=== PATIENT | female | born 1980 | race Caucasian/White ===

== ENCOUNTER → 2016-10-17 | Outpatient (REF) | payer OTHER ==
[~2016-10-17] MED LIST: ACET50CA PO; CALC600T21 PO; CIPR-250 PO; CIPR500T89 PO; CYMB60CA3 PO; DIAM500C PO; GLUCTAB PO; METF500T PO; MULTCAP PO; PROP60TA14 PO; RIZA10TA2 PO; TYLE325T5 PO; VITA100066 PO; VITA500T53 PO; ZOFR20TA PO
[2016-10-17 13:10] LABS: FOLATE 20.8 NG/ML
== END ==
LOC: M LAB REF 12:13
PROVIDERS: ATTEND Nurse Practitioner Adult Health
DX: Z98.84 Bariatric surgery status (principal); G43.909 Migraine, unspecified, not intractable, without status migrainosus; G03.0 Nonpyogenic meningitis

== ENCOUNTER 2017-01-02 19:58 | Observation (INO) | payer OTHER ==
[~2017-01-02] VITALS: Ht 162.6 cm; Wt 106.2 kg
[2017-01-02] MEDS ORDERED: NS 1,000 ML IV ONE (23:15)
[2017-01-02] MEDS ORDERED: diphenhydrAMINE INJ 50MG/ML VIAL (J1200) IV ONE (23:15)
[2017-01-02] MEDS ORDERED: KETOROLAC 30 MG/ML VIAL (J1885) IV ONE (23:15)
[2017-01-02] MEDS ORDERED: METOCLOPRAMIDE INJ 10MG/2ML VIAL (J2765) IV ONE (23:15)
--- NOTE | 2017-01-02 23:50 | REPUSA ---
CT of the head Clinical history: Headache. Comparison 05/15/2016. Technique: Multiple axial CT images were obtained through the head without administration of contrast . Findings: The ventricles and sulci are symmetric bilaterally. There is no evidence of acute hemorrhag e or infarct. There is no midline shift, mass effect, or extra-axial fluid collection. The osseous st ructures are unremarkable. The visualized paranasal sinuses and mastoid air cells are clear. Impression: Negative study.
[2017-01-03 00:14] LABS: BASO % 0.7 % (0.0-1.0); EOS # 0.2 K/mm3 (0.0-0.50); EOS % 2.8 % (0.0-3.0); LARGE UNSTAINED CELL # 0.1 K/mm3 (0.0-0.4); LYMPH # 3.1 K/mm3 (1.5-4.5); LYMPH % 45.3 % (24.0-44.0); MEAN CORPUSCULAR HEMOGLOBIN 23.5 pg (27.0-33.0); MEAN CORPUSCULAR HGB CONC 31.8 g/dl (32.0-36.5); MEAN CORPUSCULAR VOLUME 73.9 fl (80.0-96.0); MONO # 0.4 K/mm3 (0.0-0.8); MONO % 5.7 % (0.0-5.0); NEUTROPHILS # 2.9 K/mm3 (1.8-7.7); NEUTROPHILS % 43.6 % (36.0-66.0); PLATELET COUNT, AUTOMATED 305 k/mm3 (150-450); RED CELL DISTRIBUTION WIDTH 16.2 % (11.5-14.5); WHITE BLOOD COUNT 6.6 K/mm3 (4.0-10.0)
[2017-01-03 00:18] LABS: INR 1.09
[2017-01-03 00:19] LABS: ANION GAP 7 MEQ/L (8-16); BLOOD UREA NITROGEN 8 MG/DL (7-18); CALCIUM LEVEL 8.5 MG/DL (8.5-10.1); CARBON DIOXIDE LEVEL 30 MEQ/L (21-32); CHLORIDE LEVEL 107 MEQ/L (98-107); CREATININE FOR GFR 0.66 MG/DL (0.55-1.02); GLOMERULAR FILTRATION RATE > 60.0 (>60); GLUCOSE, FASTING 92 MG/DL (70-105); POTASSIUM SERUM 3.3 MEQ/L (3.5-5.1); SODIUM LEVEL 144 MEQ/L (136-145)
[2017-01-03] MEDS ORDERED: MORPHINE 4 MG/ML 1ML SYRINGE IV PRN (01:30)
[2017-01-03] MEDS ORDERED: VITMTA PO (02:21)
[2017-01-03] MEDS ORDERED: ACET50TAOT PO (02:21)
[2017-01-03] MEDS ORDERED: ACETAMINOPHEN 500 MG TAB PO PRN (03:30)
[2017-01-03] MEDS ORDERED: METOCLOPRAMIDE INJ 10MG/2ML VIAL (J2765) IV PRN (03:30)
[2017-01-03 04:12] VITALS: BP 128/61
[2017-01-03] MEDS ORDERED: POTASSIUM CHLORIDE 10 MEQ SR TABLET PO ONE (04:15)
[2017-01-03 06:00] VITALS: BP 139/64
[2017-01-03] MEDS: VITAMIN D 1,000 INTERNATIONAL UNITS TABLET PO SCH (09:34)
[2017-01-03] MEDS: DULoxetine 30 MG CAP (CYMBALTA) PO SCH (09:34)
[2017-01-03] MEDS: CYANOCOBALAMIN 500 MCG TAB PO SCH (09:34)
[2017-01-03] MEDS: MORPHINE 2 MG/ML 1ML SYRINGE IV PRN ×2 (09:35→16:31)
--- NOTE | 2017-01-03 09:42 | HPE ---
DATE OF ADMISSION: 01/03/2017 PRIMARY CARE PROVIDER: Orin Brown NP CHIEF COMPLAINT: Severe left sided headache along with left periorbital and retroorbital pain for one day, along with nausea. PAST MEDICAL HISTORY: Pseudotumor cerebri. Morbid obesity. History of ventriculoperitoneal shunt insertion and removal due to infection in 2014. Migraines. HISTORY OF PRESENT ILLNESS: This is a 36-year-old morbidly obese female who was in her usual state of health yesterday when she suddenly developed a headache involving the left side of the head along with left jessica and retroorbital area associated with nausea, but there was no vomiting. She also complained of excessive sensitivity to light and photophobia. She initially thought it was a migraines, she took some medications at home; however, it did not help so she came to the emergency room. In the emergency department she had a cocktail of medications of migraines including Benadryl, Reglan, Toradol and morphine, however she continued to complain of severe pain. The patient had a CT scan of the head done which was negative for any acute abnormalities. In view of her history of pseudotumor cerebri, neurosurgeon transition rn was contacted by the ED physician, and as per him, the patient would need a lumbar puncture later in the morning to assess opening pressure and he suggested that it should be done fluoroscopic guidance as in the past there was difficulty in doing lumbar puncture because of her body habitus. The patient's laboratory work in the emergency room was within normal limits except for a potassium of 3.3. The patient is being admitted to the hospitalist service for headache related to either migraine or pseudotumor cerebri. On my interview, the patient complained of left sided headache with blurriness of vision on the left, photophobia of the left eye and also retroorbital pain on the left. She complained of nausea. Denied any fever and chills. Denied any vomiting or any abdominal pain, diarrhea or constipation. Denied any neck pain. Denied any chest pain, shortness of breath or cough. PAST SURGICAL HISTORY: Evacuation of hematoma in the anterior abdominal wall. Several explorations in the abdomen for displaced lumboperitoneal shunt. Bilateral salpingectomies, fulguration of endometriosis and lysis of adhesions in the abdomen. Total hysterectomy. Cystoscopy. Lumboperitoneal shunt insertion and removal in 2014. ALLERGIES: 1. CEFTRIAXONE. 2. CEPHALOSPORINS. 3. VENLAFAXINE. HOME MEDICATIONS: - Cymbalta 60 mg by mouth daily - multivitamin - Tylenol 1000 mg every 6 hours as needed - cyanocobalamin 500 mcg by mouth daily - vitamin D 1000 units by mouth daily SOCIAL HISTORY: Patient does not smoke, use alcohol, or use or abuse recreational drugs. FAMILY HISTORY: Nothing significant. REVIEW OF SYSTEMS: Negative except as mentioned in history of present illness. PHYSICAL EXAMINATION: VITAL SIGNS: Temperature 97, pulse 69, respiratory rate 18, blood pressure 147/85, pulse oximetry 98% in room air. GENERAL: Patient awake, alert and oriented times three lying down in bed in no acute distress. HEENT: Normocephalic, atraumatic. Moist mucous membranes. Anicteric eyes. CHEST: Clear to auscultation. CARDIOVASCULAR: S1 and S2 regular. ABDOMEN: Soft, nontender. Bowel sounds present. Morbidly obese. EXTREMITIES: No edema. LABORATORY DATA: WBC 6.6, hemoglobin 12, platelets 305. Sodium 144, potassium 3.3, chloride 107, bicarb 30, BUN 8, creatinine 0.6, glucose 92, calcium 8.5. Coagulation studies are normal. RADIOLOGY: CT scan of the head reviewed. ASSESSMENT/PLAN: This is a 36-year-old female admitted for headache, rule out pseudotumor cerebri versus migraine. PLAN: Headache. The patient has a history of pseudotumor cerebri. Patient will need assessment of spinal pressure after lumbar puncture, which as per neurosurgeon can be performed in the morning and recommended this be done under fluoroscopic guidance because of her body habitus which has caused problems with lumbar punctures in the past. Rule out migraine. The patient does have a history of migraines so the headache could also be due to migraine. Will continue the patient on pain control for migraine. Morbid obesity complicating are. Deep vein thrombosis (DVT) prophylaxis has been ordered. Hypokalemia. Has been replaced.
[2017-01-03 14:00] VITALS: BP_SYST 160; BP_SYST 167; BP_DIAS 79; BP_DIAS 85
[2017-01-03] MEDS ORDERED: CONRAY-43 43% 50ML VIAL (Q9960) As Ordered ONE (14:00)
[2017-01-03 15:24] LABS: GLUCOSE CSF 51 MG/DL (40-75)
[2017-01-03 15:31] LABS: APPEARANCE, CSF TURBID (CLEAR); COLOR, CSF RED (COLORLESS); CSF TUBE# CELL CNT TUBE 1
[2017-01-03 15:47] LABS: APPEARANCE, CSF TURBID (CLEAR); COLOR, CSF RED (COLORLESS); CSF TUBE# CELL CNT TUBE 4
[2017-01-03 15:48] LABS: WBC COUNTED CSF 5 /uL (0-10)
[2017-01-03 15:49] LABS: DILUTION WBC CSF 10 (0-10)
[2017-01-03 15:51] LABS: DILUTION RBC CSF 10 (0-10); RBC CALC CSF 21544 /mm3 (0-0); RBC COUNTED CSF 1939 /mm3 (0-0)
--- NOTE | 2017-01-03 15:59 | IPNPDOC ---
Subjective Date Seen The patient was seen on 01/03/17. Subjective Chief Complaint/HPI The patient is a 36-year-old female admitted with a reason for visit of Headache. Events since last encounter Left sided headache, not improved, not worse, photophobia, no parasthesia, no nausea Constitutional: Denies: Chills, Fever Pulmonary: Denies: Dyspnea, Cough Cardiovascular: Denies: Chest Pain, Palpitations Gastrointestinal: Denies: Nausea, Vomiting Musculoskeletal: Denies: Neck Pain Objective Physical Examination General Exam: Positive: Alert, Cooperative, Mild Distress Eye Exam: Negative: Sclera icteric ENT Exam: Positive: Mucous membr. moist/pink Chest Exam: Positive: Clear to auscultation, Normal air movement Heart Exam: Positive: Rate Normal, Regular Rhythm Abdomen Exam: Positive: Normal bowel sounds, Soft, Negative: Tenderness Assessment /Plan Problems (1) Headache Status: Acute Problem Specific Plan: Consult Specialist Problem Text: Patient with historyof migraine and pseudotumor Interventional radiology today for lumbar puncture Neurosurgery to see as discussed last night from ED (2) Morbid obesity with BMI of 40.0-44.9, adult Status: Chronic Problem Specific Plan: Monitor Clinically Plan/VTE VTE Prophylaxis Ordered?: Yes VS, I&O, 24H, Fishbone Vital Signs/I&O Vital Signs Date Time Temp Pulse Resp B/P (MAP) Pulse Ox O2 Delivery O2 Flow Rate FiO2 01/03/17 09:47 20 01/03/17 06:00 98.1 67 139/64 (89) 94 Room Air I&O- Last 24 Hours up to 6 AM 01/03/17 06:00 Intake Total 1120 ml Balance 1120 ml Laboratory Data 24H LABS Laboratory Tests 2 01/02/17 23:46: White Blood Count 6.6, Red Blood Count 5.09, Hemoglobin 12.0, Hematocrit 37.6, Mean Corpuscular Volume 73.9L, Mean Corpuscular Hemoglobin 23.5L, Mean Corpuscular Hemoglobin Concent 31.8L, Red Cell Distribution Width 16.2H, Platelet Count 305, Neutrophils (%) (Auto) 43.6, Lymphocytes (%) (Auto) 45.3H, Monocytes (%) (Auto) 5.7H, Eosinophils (%) (Auto) 2.8, Basophils (%) (Auto) 0.7 , Neutrophils # (Auto) 2.9, Lymphocytes # (Auto) 3.1, Monocytes # (Auto) 0.4, Eosinophils # (Auto) 0.2, Basophils # (Auto) 0.0, Large Unclassified Cells % 2.0 , Large Unclassified Cells # 0.1, Prothrombin Time 14.2, Prothromb Time International Ratio 1.09, Activated Partial Thromboplast Time 28.5, Anion Gap 7L , Glomerular Filtration Rate > 60.0, Blood Urea Nitrogen 8, Creatinine 0.66, Sodium Level 144, Potassium Level 3.3L, Chloride Level 107, Carbon Dioxide Level 30, Calcium Level 8.5 01/03/17 14:31: CSF Color REDH, CSF Appearance TURBIDH, CSF WBC 56H, CSF RBC [id number], CSF Glucose (Tube 1) TUBE 2, CSF Total Protein (Tube 1) TUBE 2, CSF Cell Count Tube # TUBE 4, CSF Glucose 51, CSF Total Protein 122.4H CBC/BMP Laboratory Tests 01/02/17 23:46 Red Blood Count 5.09, Mean Corpuscular Volume 73.9 L, Mean Corpuscular Hemoglobin 23.5 L, Mean Corpuscular Hemoglobin Concent 31.8 L, Red Cell Distribution Width 16.2 H, Neutrophils (%) (Auto) 43.6, Lymphocytes (%) (Auto) 45.3 H, Monocytes (%) (Auto) 5.7 H, Eosinophils (%) (Auto) 2.8, Basophils (%) ( Auto) 0.7, Neutrophils # (Auto) 2.9, Lymphocytes # (Auto) 3.1, Monocytes # (Auto ) 0.4, Eosinophils # (Auto) 0.2, Basophils # (Auto) 0.0, Calcium Level 8.5 Microbiology Microbiology 01/03/17 Gram Stain - Final, Resulted 01/03/17 CSF Culture, Resulted Pending ASHLEY CASEY MD January 03, 2017 15:59
--- NOTE | 2017-01-03 16:37 | CR.PDOC ---
General Reason for Consultation/CC The patient is a 36-year-old female admitted with a reason for visit of Headache. History of Present Illness Neurosurgery Consult HISTORY OF PRESENT ILLNESS: Ms Cedillo is a pleasant 36 yo female admitted for left-sided headache with visual disturbances with floaters for which she has presented to the ED. Dr Currie was asked for a consult. She is accompanied by 2 family members today. She states her headache this time was unusual for her pseudotumor cerebri symptoms. Typically these headaches are on the right side. She notes after placement of the shunt she had no headaches. The shunt became problematic when infection arose and had to be removed on 12/30/2014. States she has been having issues with her memory. She states she lost her peripheral vision prior to her shunt surgery in 2014. Her last formal eye exam was 1 yr ago. ALLERGIES: Please see below. HOME MEDICATIONS: Please see below. PAST MEDICAL HISTORY: 1. Pseudotumor Cerebri; confirmed by neuroophthalmologist 2. Migraines PAST SURGICAL HISTORY: 1. Lumboperitoneal shunt placement and removal 12/2014 (d/t infection) PHYSICAL EXAMINATION: VITAL SIGNS: Please see below. GENERAL APPEARANCE: morbid obesity/ Alert and orientated x3. CLIFF. Speech is appropriate and she is participating in conversation well. NEURO: Able to move all limbs. Exam is limited d/t pt is post procedure of LP requiring her to lie flat in bed. LABORATORY DATA: Please see below. DIAGNOSTIC DATA: CT head; 01/02/17. No hydrocephalus of symptoms of brain edema. Arachnoid space is open. Small arachnoid cyst on the left side of brain. IMPRESSION: 1. Pseudotumor cerebri 2. Transformed complicated migraine PLAN/RECOMMENDATIONS: -Recommend neurology consult for assessment of migraine. -Possible left-sided TRANSCRIPTION MANAGER shunt insertion. -Request MRI venography to rule out sinus occlusion. Thank you for the consultation. Dr Kush Bahena, [facility] Vital Signs/I&O Vital Signs Date Time Temp Pulse Resp B/P (MAP) Pulse Ox O2 Delivery O2 Flow Rate FiO2 01/03/17 09:47 20 01/03/17 06:00 98.1 67 139/64 (89) 94 Room Air I&O- Last 24 Hours up to 6 AM 01/03/17 06:00 Intake Total 1120 ml Balance 1120 ml Laboratory Data 24H Labs Laboratory Tests 2 01/02/17 23:46: White Blood Count 6.6, Red Blood Count 5.09, Hemoglobin 12.0, Hematocrit 37.6, Mean Corpuscular Volume 73.9L, Mean Corpuscular Hemoglobin 23.5L, Mean Corpuscular Hemoglobin Concent 31.8L, Red Cell Distribution Width 16.2H, Platelet Count 305, Neutrophils (%) (Auto) 43.6, Lymphocytes (%) (Auto) 45.3H, Monocytes (%) (Auto) 5.7H, Eosinophils (%) (Auto) 2.8, Basophils (%) (Auto) 0.7 , Neutrophils # (Auto) 2.9, Lymphocytes # (Auto) 3.1, Monocytes # (Auto) 0.4, Eosinophils # (Auto) 0.2, Basophils # (Auto) 0.0, Large Unclassified Cells % 2.0 , Large Unclassified Cells # 0.1, Prothrombin Time 14.2, Prothromb Time International Ratio 1.09, Activated Partial Thromboplast Time 28.5, Anion Gap 7L , Glomerular Filtration Rate > 60.0, Blood Urea Nitrogen 8, Creatinine 0.66, Sodium Level 144, Potassium Level 3.3L, Chloride Level 107, Carbon Dioxide Level 30, Calcium Level 8.5 01/03/17 14:31: CSF Color REDH, CSF Appearance TURBIDH, CSF WBC 56H, CSF RBC 14669E, CSF Glucose (Tube 1) TUBE 2, CSF Total Protein (Tube 1) TUBE 2, CSF Cell Count Tube # TUBE 4, CSF Glucose 51, CSF Total Protein 122.4H CBC/BMP Laboratory Tests 01/02/17 23:46 Red Blood Count 5.09, Mean Corpuscular Volume 73.9 L, Mean Corpuscular Hemoglobin 23.5 L, Mean Corpuscular Hemoglobin Concent 31.8 L, Red Cell Distribution Width 16.2 H, Neutrophils (%) (Auto) 43.6, Lymphocytes (%) (Auto) 45.3 H, Monocytes (%) (Auto) 5.7 H, Eosinophils (%) (Auto) 2.8, Basophils (%) ( Auto) 0.7, Neutrophils # (Auto) 2.9, Lymphocytes # (Auto) 3.1, Monocytes # (Auto ) 0.4, Eosinophils # (Auto) 0.2, Basophils # (Auto) 0.0, Calcium Level 8.5 Microbiology Microbiology 01/03/17 Gram Stain - Final, Resulted 01/03/17 CSF Culture, Resulted Pending Allergies Coded Allergies: Ceftriaxone (Verified Allergy, Severe, 01/02/17) Cephalosporins (Verified Allergy, Severe, BREATHING PROB, 01/02/17) Venlafaxine (Verified Adverse Reaction, Intermediate, ANXIETY ATTACKS, 01/02) Home Medications Scheduled Cholecalciferol (Vitamin D) 1,000 Unit Tab, 1,000 UNIT PO DAILY, (Reported) Cyanocobalamin (Vitamin B12) 500 Mcg Tab, 500 MCG PO DAILY, (Reported) Duloxetine Hcl (Cymbalta) 60 Mg Cap, 60 MG PO DAILY, (Reported) Multivitamins *[facility] STOCKED* (Thera M Plus *[facility] STOCKED*) 1 Tab Tab, 1 TAB PO DAILY, (Reported) Scheduled PRN Acetaminophen (Acetaminophen) 500 Mg Tab, 1,000 MG PO Q6H PRN for PAIN, ( Reported) SANDRA BAHENA PA-C January 03, 2017 16:37
[2017-01-03] MEDS ORDERED: diphenhydrAMINE INJ 50MG/ML VIAL (J1200) IV PRN (20:00)
[2017-01-03] MEDS: AcetaZOLAMIDE 250 MG TAB PO SCH (20:48)
[2017-01-03] MEDS: PERCOCET 5MG/325MG TAB PO PRN (20:49)
[2017-01-03] MEDS ORDERED: VALPROATE SOD INJ 1,000 MG in D5W 50 ML IV ONE (21:00)
[2017-01-03 22:00] VITALS: BP 157/94
--- NOTE | 2017-01-04 05:37 | REP ---
FLUORO GUIDANCE FOR LUMBAR PUNCTURE: The procedure was performed under the personal supervision of Dr. Carter. The risks and benefits of the procedure were explained to the patient and informed consent was obtained. The L3-4 interspace was localized using fluoroscopic guidance. The skin was prepped and draped in a sterile fashion. 1% lidocaine was used as a local anesthetic. Using fluoroscopic guidance, a 22-gauge spinal needle was inserted and advanced into the thecal sac. Opening pressure measured 18 cm of water. 12 mL of spinal fluid was removed. The spinal fluid was red tinged. This is likely due to the needle being adjacent to a vessel. The fluid did clear up somewhat toward the end of filling the last vial. The patient tolerated the procedure well and there were no immediate complications. 10 seconds of fluoroscopy time was utilized for this procedure. Reviewed by CHRIS Childs 01/04/2017 03:35 PEdited and Signed by Teodoro Carter MD 01/05/2017 12:50 P
[2017-01-04 06:00] VITALS: BP 140/90
[2017-01-04 06:51] LABS: MEAN CORPUSCULAR HEMOGLOBIN 23.9 pg (27.0-33.0); MEAN CORPUSCULAR VOLUME 74.8 fl (80.0-96.0); WHITE BLOOD COUNT 4.4 K/mm3 (4.0-10.0)
[2017-01-04 07:01] LABS: ANION GAP 6 MEQ/L (8-16); BLOOD UREA NITROGEN 7 MG/DL (7-18); CALCIUM LEVEL 8.5 MG/DL (8.5-10.1); CARBON DIOXIDE LEVEL 25 MEQ/L (21-32); CHLORIDE LEVEL 110 MEQ/L (98-107); GLOMERULAR FILTRATION RATE > 60.0 (>60); GLUCOSE, FASTING 93 MG/DL (70-105); POTASSIUM SERUM 3.5 MEQ/L (3.5-5.1); SODIUM LEVEL 141 MEQ/L (136-145)
[2017-01-04] MEDS: AcetaZOLAMIDE 250 MG TAB PO SCH ×2 (08:33→20:09)
[2017-01-04] MEDS: DULoxetine 30 MG CAP (CYMBALTA) PO SCH (08:33)
[2017-01-04] MEDS: VITAMIN D 1,000 INTERNATIONAL UNITS TABLET PO SCH (08:34)
[2017-01-04] MEDS: CYANOCOBALAMIN 500 MCG TAB PO SCH (08:34)
[2017-01-04 12:04] LABS: CSF DIFF IF INDICATED? ADD MANUAL DIFF (NO)
[2017-01-04 12:05] LABS: CC CSF DIFF EXAM CYTOCENTRIFUGE
[2017-01-04] MEDS: PERCOCET 5MG/325MG TAB PO PRN ×2 (12:10→18:13)
--- NOTE | 2017-01-04 13:15 | IPNPDOC ---
Subjective Date Seen The patient was seen on 01/04/17. Subjective Chief Complaint/HPI The patient is a 36-year-old female admitted with a reason for visit of Headache. Events since last encounter Feeling better, ROSARIO resolved last night around 10 pm, after depakote, not interest in pursuing surgery in [place] ENT: Denies: Head Aches Skin: Denies: Rash Pulmonary: Denies: Dyspnea, Cough Cardiovascular: Denies: Chest Pain, Palpitations Gastrointestinal: Denies: Nausea, Vomiting, Abdominal Pain Objective Physical Examination General Exam: Positive: Alert, Cooperative, No Acute Distress, Mild Distress Eye Exam: Negative: Sclera icteric ENT Exam: Positive: Mucous membr. moist/pink Chest Exam: Positive: Clear to auscultation, Normal air movement Heart Exam: Positive: Rate Normal, Regular Rhythm, Negative: Murmurs Abdomen Exam: Positive: Normal bowel sounds, Soft, Negative: Tenderness Assessment /Plan Problems (1) Headache Status: Acute Problem Specific Plan: Consult Specialist Problem Text: Patient with historyof migraine and pseudotumor Interventional radiology for lumbar puncture- which showed RBCs, discussed with NS yesterday thought to be traumatic tap Neurology saw last night- restarted diomox, gave depakote- d/c on diamox Currently ROSARIO resolved (2) Morbid obesity with BMI of 40.0-44.9, adult Status: Chronic Problem Specific Plan: Monitor Clinically Problem Text: complicates care Plan/VTE VTE Prophylaxis Ordered?: Yes VS, I&O, 24H, Fishbone Vital Signs/I&O Vital Signs Date Time Temp Pulse Resp B/P (MAP) Pulse Ox O2 Delivery O2 Flow Rate FiO2 01/04/17 12:10 16 01/04/17 06:00 97.9 68 140/90 (107) 96 Room Air I&O- Last 24 Hours up to 6 AM 01/04/17 05:59 Intake Total 960 ml Output Total 0 ml Balance 960 ml Laboratory Data 24H LABS Laboratory Tests 2 01/03/17 14:31: CSF Color REDH, CSF Appearance TURBIDH, CSF WBC 56H, CSF RBC [id number], CSF Glucose (Tube 1) TUBE 2, CSF Total Protein (Tube 1) TUBE 2, CSF Cell Count Tube # TUBE 4, CSF Neutrophils 44H, CSF Lymphocytes 51H, CSF Monocytes 2H, CSF Eosinophils 3H, CSF Glucose 51, CSF Total Protein 122.4H 01/04/17 06:24: Anion Gap 6L, Glomerular Filtration Rate > 60.0, Blood Urea Nitrogen 7, Creatinine 0.80, Sodium Level 141, Potassium Level 3.5, Chloride Level 110H, Carbon Dioxide Level 25, Calcium Level 8.5 CBC/BMP Laboratory Tests 01/04/17 06:24 Red Blood Count 4.89, Mean Corpuscular Volume 74.8 L, Mean Corpuscular Hemoglobin 23.9 L, Mean Corpuscular Hemoglobin Concent 32.0, Red Cell Distribution Width 16.0 H, Calcium Level 8.5 Microbiology Microbiology 01/03/17 Gram Stain - Final, Resulted 01/03/17 CSF Culture, Resulted Pending ASHLEY CASEY MD January 04, 2017 13:15
--- NOTE | 2017-01-04 13:45 | CR.PDOC ---
General Reason for Consultation/CC The patient is a 36-year-old female admitted with a reason for visit of Headache. History of Present Illness Patient was seen today and interviewed. She states her headache improved on IV steroids, percocet, and diamox. Because of the improvement of her headache control, pt would like to postpone her decision regarding shunt surgery. We ordered MRV to assess transverse and sigmoid sinuses We discussed the options of further management with pt. If her headache is not controlled or need further treatment in the future she will contact our office on outpatient basis. At this point, neurosurgery services signed off. We will review results of MRV. Dr Kush Bahena, RPA-C Thank you for the consultation. Vital Signs/I&O Vital Signs Date Time Temp Pulse Resp B/P (MAP) Pulse Ox O2 Delivery O2 Flow Rate FiO2 01/04/17 12:10 16 01/04/17 06:00 97.9 68 140/90 (107) 96 Room Air I&O- Last 24 Hours up to 6 AM 01/04/17 05:59 Intake Total 960 ml Output Total 0 ml Balance 960 ml Laboratory Data 24H Labs Laboratory Tests 2 01/03/17 14:31: CSF Color REDH, CSF Appearance TURBIDH, CSF WBC 56H, CSF RBC [id number], CSF Glucose (Tube 1) TUBE 2, CSF Total Protein (Tube 1) TUBE 2, CSF Cell Count Tube # TUBE 4, CSF Neutrophils 44H, CSF Lymphocytes 51H, CSF Monocytes 2H, CSF Eosinophils 3H, CSF Glucose 51, CSF Total Protein 122.4H 01/04/17 06:24: Anion Gap 6L, Glomerular Filtration Rate > 60.0, Blood Urea Nitrogen 7, Creatinine 0.80, Sodium Level 141, Potassium Level 3.5, Chloride Level 110H, Carbon Dioxide Level 25, Calcium Level 8.5 CBC/BMP Laboratory Tests 01/04/17 06:24 Red Blood Count 4.89, Mean Corpuscular Volume 74.8 L, Mean Corpuscular Hemoglobin 23.9 L, Mean Corpuscular Hemoglobin Concent 32.0, Red Cell Distribution Width 16.0 H, Calcium Level 8.5 Microbiology Microbiology 01/03/17 Gram Stain - Final, Resulted 01/03/17 CSF Culture, Resulted Pending Allergies Coded Allergies: Ceftriaxone (Verified Allergy, Severe, 01/02/17) Cephalosporins (Verified Allergy, Severe, BREATHING PROB, 01/02/17) Venlafaxine (Verified Adverse Reaction, Intermediate, ANXIETY ATTACKS, 01/02) Home Medications Scheduled Cholecalciferol (Vitamin D) 1,000 Unit Tab, 1,000 UNIT PO DAILY, (Reported) Cyanocobalamin (Vitamin B12) 500 Mcg Tab, 500 MCG PO DAILY, (Reported) Duloxetine Hcl (Cymbalta) 60 Mg Cap, 60 MG PO DAILY, (Reported) Multivitamins *[facility] STOCKED* (Thera M Plus *[facility] STOCKED*) 1 Tab Tab, 1 TAB PO DAILY, (Reported) Scheduled PRN Acetaminophen (Acetaminophen) 500 Mg Tab, 1,000 MG PO Q6H PRN for PAIN, ( Reported) SANDRA BAHENA PA-C January 04, 2017 13:45
[2017-01-04 14:00] VITALS: BP 132/87
--- NOTE | 2017-01-04 17:36 | REP ---
MR venography with IV gadolinium: History: Pseudotumor cerebri. Question transverse and sigmoid sinus stenosis or occlusion. Headaches. Comparison MR venography is from 08/26/2014. Gadolinium enhancement dose: 18 mL of intravenous ProHance is administered. MR findings: Source sagittal images and maximal intensity projection images demonstrate normal patency of the sigmoid sinuses bilaterally. The sagittal sinus shows normal flow signal and patency as well. Straight sinus and the other visualized venous structures are unremarkable. Impression: There is no evidence of dural sinus thrombosis or stenosis. Signed by Teodoro Carter MD 01/05/2017 12:52 P
[2017-01-04 22:00] VITALS: BP 134/71
[2017-01-05 06:00] VITALS: BP 123/77
[2017-01-05] MEDS ORDERED: ACET25TA PO (06:33)
[2017-01-05] MEDS: AcetaZOLAMIDE 250 MG TAB PO SCH (09:11)
[2017-01-05] MEDS: CYANOCOBALAMIN 500 MCG TAB PO SCH (09:12)
[2017-01-05] MEDS: VITAMIN D 1,000 INTERNATIONAL UNITS TABLET PO SCH (09:12)
[2017-01-05] MEDS: DULoxetine 30 MG CAP (CYMBALTA) PO SCH (09:12)
--- NOTE | 2017-01-05 09:49 | CR ---
DATE OF CONSULTATION: 01/03/2017 Reason for consultation is acute migraine headache in setting of pseudotumor cerebri. The patient is a 36-year-old female who is previously diagnosed with pseudotumor cerebri and underwent ventriculoperitoneal shunt insertion and removal due to infection in 2014. The patient reports having major complications of the removal of the surgery, including an intraabdominal hematoma requiring emergent intervention. The patient states that she was on Diamox 500 mg twice a day up til 6 months ago. At that point, she ran out of medications. She was seeing a neuroophthalmologist at [facility] in [place]. She has not had time to make another appointment. She requested a refill through her primary care provider who stated she can only get her prescriptions through her neuroophthalmologist. It has been over 3 years since she had seen the [facility] neurology office. The patient wishes to continue to follow with her neuroophthalmologist. She has not had a recent funduscopic examination. The patient states her vision is about the same with exception of worsening of her left vision intermittently during this intense migrainous headache she is having. The patient states the headache is located over the left temporal frontal region, described as a throbbing intense pressure-like pain. The pain is associated with severe sense of light and sound sensitivity. Pain has nauseated and dizziness. The patient denies any aura. She denies any weakness of the face, arm or leg. The patient denies any change in speech. She has been given numerous medications in the emergency department and on the floor. She cannot recall whether she has ever received Depakote in the past. She is unsure whether she has ever received prednisone or Solu-Medrol. The patient has been given morphine, which she states is only sedating for her. She wishes to try something else. PAST MEDICAL HISTORY: 1. Pseudotumor cerebri diagnosed with spinal tap opening pressure check and ophthalmologic evaluation. 2. Morbid obesity. 3. History of ventriculoperitoneal shunt placement with infection placement and removal in 2014. 4. Migraine headaches. PAST SURGICAL HISTORY: 1. Evaluation of hematoma anterior abdominal wall. 2. Several explorations in the abdomen displaced lumboperitoneal shunt. 3. Bilateral salpingectomies, fulguration of endometriosis and lysis of adhesions in the abdomen. 4. Total hysterectomy. 5. Cystoscopy. 6. Lumboperitoneal shunt insertion and removal in 2014. ALLERGIES: CEFTRIAXONE, CEPHALOSPORINS, VENLAFAXINE. HOME MEDICATIONS: - Cymbalta 60 mg by mouth daily - multivitamin by mouth daily - Tylenol 1000 mg every 6 hours as needed - cyanocobalamin 500 mcg by mouth daily - vitamin D 1000 international units by mouth daily - Diamox 500 mg by mouth twice a day (patient has not taken in 6 months due to running out) SOCIAL HISTORY: She denies use of any tobacco, alcohol or illicit drugs. FAMILY HISTORY: Noncontributory. REVIEW OF SYSTEMS: 14-point review of systems is negative except as per HPI. Head CT is negative. Spinal tap shows WBC 56, RBC 21,544, glucose 51, protein 122.4. This is likely a traumatic tap. Patient does not have any nuchal rigidity, fevers or white count. White count is 6.6. CSF gram stain is negative. PHYSICAL EXAMINATION: Blood pressure 160/79, pulse rate 82, respiratory rate is 18, temperature is 98.1 degrees Fahrenheit, oxygenation 96% on room air. Patient is awake, alert, oriented to person, place and time. Speech, language, comprehension and repetition are intact. Pupils are round, reactive to light. There is no facial asymmetry activation. Palate elevates symmetrically. Tongue is midline. No weakness to sternocleidomastoids bilaterally. Hearing subjectively equal to finger rub. Motor examination: Strength is 5/5, including bilateral deltoids, biceps, triceps, hand child nutrition director, iliopsoas, quadriceps, anterior tibialis, extensor hallucis longus. Deep tendon reflexes (DTRs) are 2+ throughout. Babinski signs are absent. Sensory is intact to light touch in all four extremities. Coordination: Normal [id number] without any signs of ataxia or dysmetria. Gait deferred. ASSESSMENT: 1. Intractable migraine headache. 2. Pseudotumor cerebri, worsening migraines due to patient running out of Diamox. PLAN: 1. Prescribe Depakene 100 mg IV times one. 2. Benadryl 25 mg one tablet every 8 hours as needed, severe migrainous pain. 3. Zofran 4 mg one tablet every 8 hours as needed, migraine. 4. Can consider Solu-Medrol tomorrow morning if headache does not dissipate. Dose of Solu-Medrol would be 125 mg. 5. Restart Diamox 500 mg by mouth twice a day. 6. Followup with neuroophthalmologist at [facility] upon discharge.
--- NOTE | 2017-01-06 22:03 | IPN ---
DATE: 01/05/2017 Patient was admitted 01/03/5017, discharged 01/05/2017. SPECIALISTS INVOLVED IN CARE: Dr. Currie On the day of discharge she is feeling well. She has no complaints of pain, chest pain, shortness of breath. Headache has totally resolved. She is interested in following up with her neuro-fibre cement moulder in [place]. Temperature 98.5, pulse 58, respiratory rate 18, blood pressure 123/77, 97% on room air. Awake, appropriately interactive. Breathing is symmetrical and rested. Heart is in a regular rate and rhythm. Abdomen is soft, doughy, nontender. There are no labs to review on the day of discharge, ASSESSMENT: This is a 36-year-old with known pseudotumor cerebri who presented with headache while off Diamox. PLAN: 1. Headache. Patient has history of migraine and pseudotumor. Is seen by Dr. Lew. We discussed this case by phone. Plan will be to discharge the patient on Diamox and have her followup with her neuro-fibre cement moulder in [place]. 2. Patient has morbid obesity, which complicates care. 3. Patient has expressed an interest in not pursuing surgical intervention at [facility] based on her previous history at [facility].
== END 2017-01-05 10:35 | disposition home or self-care (01) ==
LOC: M ED 21:17 → M ED INP 21:18 → UNDOADMOB 01-03 03:16 → M ED INP 01-03 03:16 → M MS5PR 01-03 04:12 → M ED INP 01-03 04:12 → UNDODISOB 01-05 10:35
PROVIDERS: ADMIT Internal Medicine Nephrology; ATTEND Internal Medicine
DX: G43.911 Migraine, unspecified, intractable, with status migrainosus (principal); G93.2 Benign intracranial hypertension; H53.149 Visual discomfort, unspecified; Z88.1 Allergy status to other antibiotic agents; Z79.899 Other long term (current) drug therapy; E87.6 Hypokalemia; E66.01 Morbid (severe) obesity due to excess calories
CPT/HCPCS: 36415; 62270; 70450; 70546; 77002; 80048; 82945; 84157; 85025; 85027; 85610; 85730; 87015; 87070; 87205; 89051; 96361; 96374; 96375; 96376; 99284; A9576; J1200; J1885; J2765

== ENCOUNTER → 2017-01-12 | Outpatient (REF) | payer OTHER ==
[~2017-01-12] MED LIST changes: +ACET25TA PO; +ACET50TAOT PO; +VITMTA PO
[2017-01-12 18:46] LABS: MICROSCOPIC INDICATED? MAN YES (NO)
[2017-01-12 18:49] LABS: BACTERIA, URINE SMALL AMOUNT; CALCIUM OXALATE CRYSTALS,URINE LARGE AMOUNT /hpf; HYALINE CAST, URINE NONE SEEN /lpf (0-1); MICROSCOPIC EXAM PERFORMED; RBC, URINE 0-1 /hpf (0-3); SQUAMOUS EPITHELIAL CELL URINE MOD AMOUNT /hpf (SMALL AMT)
== END ==
LOC: M LAB REF 16:26
PROVIDERS: ATTEND Nurse Practitioner Adult Health
DX: R32 Unspecified urinary incontinence (principal)

== ENCOUNTER 2017-04-11 15:14 | Emergency (ER) | payer OTHER ==
[~2017-04-11] VITALS: Ht 162.6 cm; Wt 110.0 kg
[~2017-04-11 15:14] MED LIST changes: +ACET250T2 PO; -ACET25TA PO; +ACET500C4 PO; -ACET50CA PO; -CALC600T21 PO; +CALC600T60 PO; +CIPR-249 PO; -CIPR500T89 PO; -METF500T PO; +METF500T13 PO
[2017-04-11] MEDS ORDERED: DIAM500C PO (15:23)
[2017-04-11 17:28] LABS: ANION GAP 7 MEQ/L (8-16); BLOOD UREA NITROGEN 11 MG/DL (7-18); CALCIUM LEVEL 8.4 MG/DL (8.5-10.1); CARBON DIOXIDE LEVEL 29 MEQ/L (21-32); CHLORIDE LEVEL 108 MEQ/L (98-107); CREATININE FOR GFR 0.64 MG/DL (0.55-1.02); GLOMERULAR FILTRATION RATE > 60.0 (>60); GLUCOSE, FASTING 90 MG/DL (70-105); POTASSIUM SERUM 3.9 MEQ/L (3.5-5.1); SODIUM LEVEL 144 MEQ/L (136-145)
[2017-04-11 17:41] LABS: BASO # 0.1 K/mm3 (0.0-0.2); BASO % 1.4 % (0.0-1.0); EOS # 0.2 K/mm3 (0.0-0.50); EOS % 2.7 % (0.0-3.0); LARGE UNSTAINED CELL # 0.2 K/mm3 (0.0-0.4); LARGE UNSTAINED CELL % 2.5 % (0.0-4.0); LYMPH # 2.7 K/mm3 (1.5-4.5); MEAN CORPUSCULAR HEMOGLOBIN 24.6 pg (27.0-33.0); MEAN CORPUSCULAR HGB CONC 31.8 g/dl (32.0-36.5); MEAN CORPUSCULAR VOLUME 77.4 fl (80.0-96.0); MONO # 0.4 K/mm3 (0.0-0.8); MONO % 5.2 % (0.0-5.0); NEUTROPHILS # 3.3 K/mm3 (1.8-7.7); NEUTROPHILS % 48.1 % (36.0-66.0); PLATELET COUNT, AUTOMATED 263 k/mm3 (150-450); RED CELL DISTRIBUTION WIDTH 15.7 % (11.5-14.5); WHITE BLOOD COUNT 6.8 K/mm3 (4.0-10.0)
[2017-04-11] MEDS ORDERED: ANUC25SU PR (18:13)
[2017-04-11 18:26] VITALS: BP 125/83
[2017-04-28] MEDS ORDERED: PROP60CA PO (11:51)
== END 2017-04-11 18:33 | disposition home or self-care (01) ==
LOC: M ED 15:14
DX: K64.8 Other hemorrhoids (principal); I10 Essential (primary) hypertension; E28.2 Polycystic ovarian syndrome; F41.9 Anxiety disorder, unspecified; Z98.84 Bariatric surgery status; Z88.1 Allergy status to other antibiotic agents; Z79.899 Other long term (current) drug therapy

== ENCOUNTER 2017-05-03 09:44 | Outpatient (CLI) | payer OTHER ==
[~2017-05-03] VITALS: Ht 162.6 cm; Wt 96.2 kg
[~2017-05-03 09:44] MED LIST changes: +ANUC25SU PR; +PROP60CA PO
[2017-05-03] MEDS ORDERED: NS 1,000 ML IV ONE (10:00)
[2017-05-03] MEDS ORDERED: PROPOFOL 200 MG/20 ML VIAL As Ordered ONE ×2 (10:47→11:20)
--- NOTE | 2017-05-03 11:30 | ROOR ---
Patient Name: Emily Cedillo Procedure Date: 05/03/2017 11:07 AM Date of : 1980 Age: 36 Room: [facility] Gender: Female Note Status: Finalized Procedure: Colonoscopy Indications: Hematochezia Providers: DO Wilder Vargas MD: Orin Mendoza NP Requesting Provider: Medicines: Propofol per Anesthesia Complications: No immediate complications. Procedure: Pre-Anesthesia Assessment: - Prior to the procedure, a History and Physical was performed, and patient medications and allergies were reviewed. The patient is competent. The risks and benefits of the procedure and the sedation options and risks were discussed with the patient. All questions were answered and informed consent was obtained. Patient identification and proposed procedure were verified by the physician, the nurse, the anesthesiologist and the hvac/r service technician in the endoscopy suite. Mental Status Examination: alert and oriented. Airway Examination: normal oropharyngeal airway and neck mobility. Respiratory Examination: clear to auscultation. CV Examination: normal. Prophylactic Antibiotics: The patient does not require prophylactic antibiotics. Prior Anticoagulants: The patient has taken no previous anticoagulant or antiplatelet agents. ASA Grade Assessment: II - A patient with mild systemic disease. After reviewing the risks and benefits, the patient was deemed in satisfactory condition to undergo the procedure. The anesthesia plan was to use monitored anesthesia care (MAC). Immediately prior to administration of medications, the patient was re-assessed for adequacy to receive sedatives. The heart rate, respiratory rate, oxygen saturations, blood pressure, adequacy of pulmonary ventilation, and response to care were monitored throughout the procedure. The physical status of the patient was re-assessed after the procedure. The Colonoscope was introduced through the anus and advanced to the cecum, identified by appendiceal orifice and ileocecal valve. The colonoscopy was performed without difficulty. The patient tolerated the procedure well. The quality of the bowel preparation was inadequate. Findings: The perianal exam findings include internal hemorrhoids (Grade I). The exam was otherwise without abnormality on direct and retroflexion views. Impression: - Preparation of the colon was inadequate. - Internal hemorrhoids (Grade I) found on perianal exam. - The examination was otherwise normal on direct and retroflexion views. - No specimens collected. Recommendation: - Patient has a contact number available for emergencies. The signs and symptoms of potential delayed complications were discussed with the patient. Return to normal activities tomorrow. Written discharge instructions were provided to the patient. - Repeat colonoscopy PRN because the bowel preparation was suboptimal. - Return to my office PRN. Jonathan Plata DO 05/03/2017 11:30:33 AM This report has been signed electronically. Number of Addenda: 0 Note Initiated On: 05/03/2017 11:07 AM Estimated Blood Loss: Estimated blood loss: none.
[2017-05-03 11:50] VITALS: BP 119/61
== END 2017-05-03 12:00 | disposition home or self-care (01) ==
LOC: M OPP 09:44
PROVIDERS: ATTEND Surgery
DX: K92.1 Melena (principal); K64.0 First degree hemorrhoids; R10.9 Unspecified abdominal pain; R11.0 Nausea; I10 Essential (primary) hypertension; E28.2 Polycystic ovarian syndrome; D64.9 Anemia, unspecified; M54.9 Dorsalgia, unspecified; F41.9 Anxiety disorder, unspecified; G43.909 Migraine, unspecified, not intractable, without status migrainosus; G93.2 Benign intracranial hypertension; Z98.84 Bariatric surgery status; Z88.1 Allergy status to other antibiotic agents; Z88.8 Allergy status to other drugs, medicaments and biological substances; Z79.899 Other long term (current) drug therapy; Z87.891 Personal history of nicotine dependence; Z80.3 Family history of malignant neoplasm of breast; Z80.49 Family history of malignant neoplasm of other genital organs; Z83.71 Family history of colonic polyps; Z80.0 Family history of malignant neoplasm of digestive organs

== ENCOUNTER 2017-06-02 18:10 | Day surgery (SDC) | payer OTHER ==
[~2017-06-02] VITALS: Ht 162.6 cm; Wt 109.3 kg
[2017-06-02] MEDS ORDERED: ONDANSETRON 4MG/2ML VIAL (J2405) IV ONE (20:15)
[2017-06-02] MEDS ORDERED: NS 1,000 ML IV ONE (20:15)
[2017-06-02] MEDS ORDERED: KETOROLAC 30 MG/ML VIAL (J1885) IV ONE (20:15)
[2017-06-02 20:34] LABS: BASO # 0.1 10^3/uL (0.0-0.2); BASO % 0.4 % (0.0-1.0); EOS # 0.1 10^3/uL (0.0-0.50); EOS % 0.7 % (0.0-3.0); IMMATURE GRANULOCYTE % 0.3 % (0-0); LYMPH # 1.6 10^3/uL (1.5-4.5); LYMPH % 13.2 % (24.0-44.0); MEAN CORPUSCULAR HEMOGLOBIN 23.9 pg (27.0-33.0); MEAN CORPUSCULAR HGB CONC 31.4 g/dl (32.0-36.5); MEAN CORPUSCULAR VOLUME 76.1 fl (80.0-96.0); MONO # 0.5 10^3/uL (0.0-0.8); MONO % 4.3 % (0.0-5.0); NEUTROPHILS % 81.1 % (36.0-66.0); PLATELET COUNT, AUTOMATED 327 10^3/uL (150-450); RED CELL DISTRIBUTION WIDTH 15.4 % (11.5-14.5); WHITE BLOOD COUNT 12.3 10^3/uL (4.0-10.0)
[2017-06-02 20:55] LABS: ALBUMIN 3.9 GM/DL (3.2-5.2); ALBUMIN/GLOBULIN RATIO 1.11 (1.00-1.93); ALKALINE PHOSPHATASE 77 U/L (45-117); ALT/SGPT 23 U/L (12-78); ANION GAP 5 MEQ/L (8-16); AST/SGOT 14 U/L (15-37); BILIRUBIN,DIRECT 0.1 MG/DL (0.0-0.2); BILIRUBIN,TOTAL 0.4 MG/DL (0.2-1.0); BLOOD UREA NITROGEN 14 MG/DL (7-18); CALCIUM LEVEL 8.5 MG/DL (8.5-10.1); CARBON DIOXIDE LEVEL 26 MEQ/L (21-32); CHLORIDE LEVEL 109 MEQ/L (98-107); CREATININE FOR GFR 0.83 MG/DL (0.55-1.02); GLOMERULAR FILTRATION RATE > 60.0 (>60); GLUCOSE, FASTING 134 MG/DL (70-105); POTASSIUM SERUM 3.7 MEQ/L (3.5-5.1); SODIUM LEVEL 140 MEQ/L (136-145); TOTAL PROTEIN 7.4 GM/DL (6.4-8.2)
--- NOTE | 2017-06-02 21:20 | REPUSA ---
CT of the abdomen and pelvis without contrast Clinical statement: Pain. Technique: Multiple axial CT images were obtained from the base of the lungs to the floor of the pelv is utilizing 5 mm axial slices without administration of contrast. Coronal and sagittal reconstructio ns were also obtained. Comparison: 01/02/2015. Findings: Chest: The visualized lung bases are clear. There is a small hiatal hernia. Abdomen: The kidneys are normal in size bilaterally. Inflammatory changes are seen around the left ki dney.There is moderate left-sided hydronephrosis and hydroureter, caused by 9 mm stone at the left ur eterovesical junction. The right renal collecting system is normal. The liver, spleen, pancreas, gall bladder and adrenal glands are unremarkable. The aorta demonstrates normal caliber and contour. There is no abdominal lymphadenopathy or ascites. Pelvis: The bowel is unremarkable, with no obstructive or inflammatory changes. The appendix is manoj l. The urinary bladder is within normal limits. There is no pelvic lymphadenopathy or ascites. The ot her pelvic structures appear unremarkable. Bones: There are no suspicious osseous abnormalities seen. Impression: 1. Inflamed, large left kidney with moderately severe left-sided hydronephrosis and hydroureter. This is caused by 9 mm obstructing stone at the left ureterovesical junction. 2. No obstructive or inflammatory bowel changes.
[2017-06-02] MEDS ORDERED: MORPHINE 4 MG/ML 1ML SYRINGE IV ONE (22:15)
[2017-06-02] MEDS ORDERED: ACET500C4 PO (22:56)
[2017-06-03] VITALS (7 sets, daily range): BP systolic 123–155; BP diastolic 68–91
[2017-06-03] MEDS ORDERED: CIPROFLOXACIN 400 MG in APPROPRIATE DILUENT 1 EA IV SCH (03:00)
[2017-06-03] MEDS ORDERED: D5W/0.45% SODIUM CHLORIDE 1,000 ML IV SCH (03:00)
[2017-06-03] MEDS ORDERED: ONDANSETRON 4MG/2ML VIAL (J2405) IV PRN (03:15)
[2017-06-03] MEDS ORDERED: MORPHINE 2 MG/ML 1ML SYRINGE IV PRN (03:15)
[2017-06-03] MEDS ORDERED: ACETAMINOPHEN 500 MG TAB PO PRN (03:15)
[2017-06-03] MEDS: CIPROFLOXACIN 400 MG in APPROPRIATE DILUENT 1 EA IV SCH ×2 (03:36→14:14)
[2017-06-03] MEDS: oxyCODONE 5MG TAB PO PRN ×2 (03:36→14:13)
[2017-06-03] MEDS ORDERED: CONRAY-60 60% 50ML VIAL (Q9961) As Ordered ONE (10:34)
[2017-06-03] MEDS ORDERED: fentaNYL 250 MCG/5 ML INJECTION (J3010) As Ordered ONE (11:34)
[2017-06-03] MEDS ORDERED: PROPOFOL 200 MG/20 ML VIAL As Ordered ONE (11:34)
[2017-06-03] MEDS ORDERED: ONDANSETRON 4MG/2ML VIAL (J2405) As Ordered ONE (11:34)
[2017-06-03] MEDS ORDERED: LIDOCAINE 2% INJ 100 MG/5 ML SDV (FOR ANES.) As Ordered ONE (11:34)
[2017-06-03] MEDS ORDERED: dexameTHASONE 4 MG/ML 1ML VIAL (J1100) As Ordered ONE (11:34)
[2017-06-03] MEDS ORDERED: MIDAZOLAM INJ 2 MG/2 ML VIAL (J2250) As Ordered ONE (11:34)
[2017-06-03] MEDS ORDERED: OXYC15TA76 PO (14:22)
[2017-06-03] MEDS ORDERED: CIPR500T3 PO (14:22)
--- NOTE | 2017-06-03 15:01 | REP ---
REASON: Stent placement. 1 minute 19 seconds of fluoroscopy time was provided to Dr. Ruffin. Three images have been submitted for review. There is a partially imaged left-sided double J stent catheter, the proximal portion is uncoiled but appears to be in the region of the left renal pelvis. The distal portion is outside the view of the radiograph. Signed by Jacoby Ordonez DO 06/03/2017 03:37 P
--- NOTE | 2017-06-03 19:03 | HPEPDOC ---
General Date of Admission Jun 02, 2017 at 22:23 Attending Physician: GALE SUTHERLAND MD Chief Complaint Left flank pain Source: Patient Exam Limitations: No limitations History of Present Illness The patient is a 36-year-old female admitted with a reason for visit of Kidney Stone. 2 the [facility] emergency department on the night of 06/02 complaining of severe left flank pain. CAT scan imaging was performed and demonstrated an approximately 1 cm stone in the distal left ureter just proximal to the ureterovesical junction. Her laboratory examinations were fairly unremarkable. She was counseled thoroughly on the various treatment options for the stone including a trial of passage with medical expulsive therapy versus a surgical intervention. The patient preferred to proceed to a surgical intervention. She was admitted for 23 hour observation/same-day care procedure by the urology service. Home Medications Scheduled Acetazolamide (Acetazolamide ER) 500 Mg Capcr, 500 MG PO BID, (Reported) Cholecalciferol (Vitamin D) 1,000 Unit Tab, 1,000 UNIT PO DAILY, (Reported) Ciprofloxacin HCl (Ciprofloxacin HCl) 500 Mg Tab, 500 MG PO BID, (Reported) Cyanocobalamin (Vitamin B12) 500 Mcg Tab, 500 MCG PO DAILY, (Reported) Duloxetine Hcl (Cymbalta) 60 Mg Cap, 60 MG PO DAILY, (Reported) Multivitamins *[facility] STOCKED* (Thera M Plus *[facility] STOCKED*) 1 Tab Tab, 1 TAB PO DAILY, (Reported) Propranolol HCl (Propranolol HCl ER) 60 Mg Cap, 60 MG PO DAILY, (Reported) Scheduled PRN Acetaminophen (Acetaminophen) 500 Mg Tab, 1,000 MG PO Q6H PRN for PAIN, ( Reported) Oxycodone Hcl (Oxycodone HCl) 15 Mg Tab, 5 MG PO Q6HP PRN for PAIN, (Reported) Allergies Coded Allergies: Ceftriaxone (Verified Allergy, Severe, 04/28/17) Cephalosporins (Verified Allergy, Severe, BREATHING PROB, 04/28/17) Venlafaxine (Verified Adverse Reaction, Intermediate, ANXIETY ATTACKS, 04/28) Past Medical History Medical History 1. Pseudotumor cerebri diagnosed with spinal tap opening pressure check and ophthalmologic evaluation. 2. Morbid obesity. 3. History of ventriculoperitoneal shunt placement with infection placement and removal in 2014. 4. Migraine headaches. Surgical History PAST SURGICAL HISTORY: 1. Evaluation of hematoma anterior abdominal wall. 2. Several explorations in the abdomen displaced lumboperitoneal shunt. 3. Bilateral salpingectomies, fulguration of endometriosis and lysis of adhesions in the abdomen. 4. Total hysterectomy. 5. Cystoscopy. 6. Lumboperitoneal shunt insertion and removal in 2015. Family History Significant Family History: No pertinent family hx Social History * Smoker: Denies Alcohol: Denies Drugs: denies Review of Symptoms Constitutional: Denies: Chills, Fever, Night Sweats Eyes: Denies: Pain, Vision change ENT: Denies: Head Aches, Ear Pain, Dysphagia Skin: Denies: Rash, Lesions, Breakdown Pulmonary: Denies: Dyspnea, Cough Cardiovascular: Denies: Chest Pain, Palpitations, Orthopnea, Paroxysmal Noc. Dyspnea, Lt Headedness Gastrointestinal: Reports: Nausea, Denies: Vomiting, Abdominal Pain, Diarrhea Genitourinary: Reports: Hematuria, Denies: Dysuria, Frequency, Incontinence, Retention Hematologic: Denies: Bruising, Bleeding Excessively Musculoskeletal: Denies: Neck Pain, Back Pain, Joint Pain, Muscle Pain, Spasms Neurological: Denies: Weakness, Numbness, Change in speech, Confusion Psych: Reports: Mood Normal, Denies: Depression, Memory Issues Physical Examination General Exam: Positive: Alert, No Acute Distress Eye Exam: Positive: PERRLA, Conjunctiva & lids normal, EOMI, Negative: Sclera icteric ENT Exam: Positive: Atraumatic, Mucous membr. moist/pink, Pharynx Normal Neck Exam: Positive: Supple, Negative: JVD, thyromegaly Chest Exam: Positive: Clear to auscultation, Normal air movement Heart Exam: Positive: Rate Normal, Regular Rhythm, Normal S1, Normal S2, Negative: Murmurs, Rubs Telemetry: Positive: No significant arrhythmia Abdomen Exam: Positive: Soft, Tenderness Extremity Exam: Positive: Normal pulses, Negative: Clubbing, Cyanosis, Edema Skin Exam: Positive: Nl turgor and temperature, Negative: Breakdown, Lesion Neuro Exam: Positive: Normal Gait, Normal Speech, Cranial Nerves 3-12 NL, Reflexes 2+ Psych Exam: Positive: Mental status NL, Mood NL, Oriented x 3 Other physical findings Left CVAT Vital Signs Vital Signs Date Time Temp Pulse Resp B/P (MAP) Pulse Ox O2 Delivery O2 Flow Rate FiO2 06/03/17 15:45 97.7 85 18 142/83 (102) 96 Room Air Laboratory Data Labs 24H Laboratory Tests 2 06/02/17 20:13: Urine Appearance CLOUDYH, Urine Color YELLOW, Urine pH 5.0, Urine Specific [place] 1.024, Urine Protein 2+H, Urine Glucose (UA) NEGATIVE, Urine Ketones 1+H , Urine Urobilinogen 0.2, Urine Bilirubin NEGATIVE, Urine Leukocyte Esterase TRACEH, Urine Blood 3+H, Urine Nitrite NEGATIVE, Urine WBC (Auto) 18H, Urine RBC (Auto) TNTCH, Urine Hyaline Casts (Auto) 0, Urine Bacteria (Auto) NEGATIVE, Urine Squamous Epithelial Cells 17, Urine Mucus (Auto) SMALL, Urine Sperm (Auto ) 06/02/17 20:24: Immature Granulocyte % (Auto) 0.3H, White Blood Count 12.3H, Red Blood Count 5.02, Hemoglobin 12.0, Hematocrit 38.2, Mean Corpuscular Volume 76.1L, Mean Corpuscular Hemoglobin 23.9L, Mean Corpuscular Hemoglobin Concent 31.4L, Red Cell Distribution Width 15.4H, Platelet Count 327, Neutrophils (%) (Auto) 81.1H , Lymphocytes (%) (Auto) 13.2L, Monocytes (%) (Auto) 4.3, Eosinophils (%) (Auto ) 0.7, Basophils (%) (Auto) 0.4, Neutrophils # (Auto) 10.0H, Lymphocytes # (Auto ) 1.6, Monocytes # (Auto) 0.5, Eosinophils # (Auto) 0.1, Basophils # (Auto) 0.1 , Immature Granulocyte # (Auto) 0.0, Nucleated Red Blood Cells % (auto) 0.0, Anion Gap 5L, Glomerular Filtration Rate > 60.0, Calcium Level 8.5, Aspartate Amino Transf (AST/SGOT) 14L, Alanine Aminotransferase (ALT/SGPT) 23, Alkaline Phosphatase 77, Total Bilirubin 0.4, Direct Bilirubin 0.1, Total Protein 7.4, Albumin 3.9, Albumin/Globulin Ratio 1.11, Lipase 154 CBC/BMP Laboratory Tests 06/02/17 20:24 Red Blood Count 5.02, Mean Corpuscular Volume 76.1 L, Mean Corpuscular Hemoglobin 23.9 L, Mean Corpuscular Hemoglobin Concent 31.4 L, Red Cell Distribution Width 15.4 H, Neutrophils (%) (Auto) 81.1 H, Lymphocytes (%) (Auto ) 13.2 L, Monocytes (%) (Auto) 4.3, Eosinophils (%) (Auto) 0.7, Basophils (%) ( Auto) 0.4, Neutrophils # (Auto) 10.0 H, Lymphocytes # (Auto) 1.6, Monocytes # ( Auto) 0.5, Eosinophils # (Auto) 0.1, Basophils # (Auto) 0.1 Microbiology Microbiology 06/02/17 Urine Culture - Final, Complete RAD Interpretation Rad Actions: Report Reviewed Assessment/Plan Large symptomatic distal left ureteral stone Plan / VTE VTE Prophylaxis Ordered?: Yes VTE Exclusion Pharmacological: Bleeding Risk Plan Plan 1. Admit to urology for 23 hr observation / same day care. 2. NPO. 3. to OR when available for: cystoscopy, left retrograde pyelogram, left ureteral stent placement, possible left ureteroscopy and laser lithotripsy. 4. Likely discharge to home after procedure. GALE SUTHERLAND MD Jun 03, 2017 19:03
--- NOTE | 2017-06-03 19:33 | ROOPDOC ---
[facility] Report Of Operation Report of Operation DATE OF PROCEDURE: 06/03/17 PREPROCEDURE DIAGNOSES: Distal left ureteral stone. POSTPROCEDURE DIAGNOSES: Distal left ureteral stone. PROCEDURE: Cystoscopy, left retrograde pyelogram, left ureteroscopy with laser lithotripsy and stone basketing, left ureteral stent placement. SURGEON: Gale Ruffin MD STACK YIELD ENGINEER: photo equipment technician ANESTHESIA: Gen. endotracheal. ESTIMATED BLOOD LOSS: Minimal COMPLICATIONS: None. REMARKS: Large distal left ureteral stone fragmented with laser and removed. JUSTIFICATION FOR PROCEDURE: This patient is a 36-year-old female who presented to the [facility] emergency department and was found to have an approximately 1 cm stone in her distal left ureter. The urology service was consulted. The patient was counseled on the various treatment options going forward including a trial of passage with medical expulsive therapy, as well as various surgical modalities. The patient elected to proceed to the above described procedures. Full written informed consent was obtained. DESCRIPTION OF PROCEDURE: After being evaluated by the anesthesia service the patient was transferred to the operating room. General endotracheal anesthesia was initiated and the patient was placed into the dorsal lithotomy position. Timeout was performed. She had already received ciprofloxacin as surgical prophylaxis. Her genitalia was prepped and draped in the usual sterile manner. We began the procedure by advancing a 22.5 Tongan rigid cystoscope through the urethra into the bladder. The urethra and interior of the bladder appeared generally normal. Bilateral ureteral orifices were visualized and orthotopic position. A 5 Tongan open-ended ureteral catheter was advanced through the cystoscope and used to cannulate the right ureteral orifice. Contrast was then injected through the ureteral catheter and up the left ureter in a retrograde manner. Simultaneous fluoroscopic imaging demonstrated a possible filling defect in the distal right ureter corresponding to the known stone, and some proximal ureteral dilation. It was possible to advance the ureteral catheter beyond the stone and up the ureter proximally. A sensor wire was then advanced through the ureteral catheter and up into the left kidney. The catheter was backed off the wire leaving the wire in place. We then exchanged the rigid cystoscope for a semirigid ureteroscope. An 8 Tongan red rubber catheter was placed through the urethra into the bladder to drain the bladder during the ureteroscopy. The semirigid ureteroscope was then advanced into the bladder and up into the left ureter using the safety wire as a visual guide. Soon after moving up the lumen of the left ureter we visualized the stone. A 365 laser fiber was then advanced through the ureteroscope and the other end was connected to the laser energy source. The holmium laser energy was then used to gradually break the stone down into multiple small fragments. This took some time but it was successful in achieving many small fragments, all of which appeared to be removable. At this point we removed the laser fiber and exchanged it for a basket. We then basketed out each of the stone fragments one by one. Once we had removed all stone fragments we sent several of them off for stone composition analysis. The ureteroscope was exchanged back for the cystoscope which was backloaded over the safety wire and advanced into the bladder. A 6 Tongan multilength ureteral stent was then advanced over the wire through the cystoscope and up the left ureter under fluoroscopic guidance. When it was in good position the wire was removed. The stent was confirmed to be properly placed. The string was left on the stent and coming out of the urethra. The bladder was drained and the stent string was secured to the perineum with a Tegaderm dressing. The patient was placed back into the supine position. Anesthesia was discontinued and the patient was transferred to the postoperative care unit. She had been hemodynamically stable throughout the entire case. PLAN: The patient will be discharged home today. She has been instructed to follow up with Dr. Richardson or Dr. Kearns in the next 3-7 days for stent removal and to discuss stone prevention strategies. She has been given prescriptions for Cipro to be taken as prophylactic antibiotics for the next several days, as well as oxycodone in case she has further pain. GALE RUFFIN MD Jun 03, 2017 19:33
== END 2017-06-03 16:35 | disposition home or self-care (01) ==
LOC: M ED 18:10 → M SDC 18:11 → INTOOBSV 22:23 → UNDOADMOB 22:23 → M ED INP 22:23 → M PED 06-03 02:41 → M ED INP 06-03 02:41 → M SDC 06-03 11:00 → M PED 06-03 11:00 → M SDC 06-03 16:35 → UNDODISOB 06-03 16:35
PROVIDERS: ATTEND Urology Pediatric Urology
DX: N20.1 Calculus of ureter (principal); I10 Essential (primary) hypertension; E66.9 Obesity, unspecified; Z79.899 Other long term (current) drug therapy
CPT/HCPCS: 52356; 74176; 74420; 80048; 80076; 81001; 82360; 83690; 85025; 87086; 88300; 96361; 96374; 96375; 99284; C1769; C2617; J0744; J1100; J1885; J2250; J2405; J3010; Q9961

== ENCOUNTER → 2017-06-05 | Outpatient (CLI) | payer OTHER ==
[~2017-06-05] MED LIST changes: +CIPR500T3 PO; +OXYC15TA76 PO
--- NOTE | 2017-06-06 01:49 | REP ---
Clinical: Ureteral stone. Technique: Single supine view of the abdomen. Findings: A left-sided ureteral stent is identified in seemingly satisfactory position. No obvious renal or ureteral calculi are identified. Small calcifications in the pelvis measuring up to 2 mm likely represent phleboliths. Bowel gas pattern is nonspecific. Evidence of prior cholecystectomy. Skeletal structures are intact. Impression: No obvious residual renal or ureteral calculi identified. Signed by Austin Scott MD 06/06/2017 01:40 A
== END ==
LOC: M SMT 15:03
PROVIDERS: ATTEND Nurse Practitioner Women's Health
DX: N20.1 Calculus of ureter (principal)

== ENCOUNTER → 2017-07-05 | Outpatient (REF) | payer OTHER | LOC: M LAB REF 16:23 | PROVIDERS: ATTEND Obstetrics & Gynecology | DX: N39.3 Stress incontinence (female) (male) (principal) ==

== ENCOUNTER → 2018-01-30 | Outpatient (REF) | payer OTHER | LOC: M LAB REF 12:39 | DX: J02.9 Acute pharyngitis, unspecified (principal) ==

== ENCOUNTER → 2018-09-03 | Outpatient (REF) | payer OTHER ==
[~2018-09-03] MED LIST changes: +ACET500T15 PO; -ACET50TAOT PO; -ZOFR20TA PO; +ZOFR4TAB16 PO
[2018-09-03 18:07] LABS: ALBUMIN 3.8 GM/DL (3.2-5.2); ALT/SGPT 24 U/L (12-78); BILIRUBIN,DIRECT 0.1 MG/DL (0.0-0.2); BILIRUBIN,TOTAL 0.4 MG/DL (0.2-1.0); BLOOD UREA NITROGEN 12 MG/DL (7-18); CALCIUM LEVEL 8.1 MG/DL (8.5-10.1); CARBON DIOXIDE LEVEL 26 MEQ/L (21-32); CHLORIDE LEVEL 107 MEQ/L (98-107); CREATININE FOR GFR 0.63 MG/DL (0.55-1.30); GLOMERULAR FILTRATION RATE > 60.0 (>58); GLUCOSE, FASTING 81 MG/DL (70-100); PHOSPHORUS LEVEL 3.7 MG/DL (2.5-4.9); POTASSIUM SERUM 3.5 MEQ/L (3.5-5.1); SODIUM LEVEL 140 MEQ/L (136-145); TOTAL PROTEIN 6.4 GM/DL (6.4-8.2)
[2018-09-03 18:08] LABS: HEMATOCRIT 34.7 % (36.0-47.0); HEMOGLOBIN 10.2 g/dl (12.0-15.5); MEAN CORPUSCULAR HGB CONC 29.4 g/dl (32.0-36.5); MEAN CORPUSCULAR VOLUME 71.5 fl (80.0-96.0); PLATELET COUNT, AUTOMATED 329 10^3/uL (150-450); RED BLOOD COUNT 4.85 10^6/uL (4.00-5.40); WHITE BLOOD COUNT 6.1 10^3/uL (4.0-10.0)
== END ==
LOC: M LAB REF 17:17
PROVIDERS: ATTEND Podiatrist Foot & Ankle Surgery
DX: Z79.899 Other long term (current) drug therapy (principal); B35.1 Tinea unguium

== ENCOUNTER → 2018-10-28 | Outpatient (REF) | payer OTHER ==
[~2018-10-28] MED LIST changes: +ACET30TAB PO; +DULO1CAP3; +KETO10TAB PO; +NITR100C2; +PENI500T; +TAMS1CAP17; +TERB250T12
[2018-10-28 18:34] LABS: AMORPHOUS SEDIMENT MODERATE (NEGATIVE); BACTERIA, URINE AUTO NEGATIVE (NEGATIVE); MUCUS, URINE SMALL (NEGATIVE); RBC, URINE AUTO 2 /HPF (0-3); SQUAMOUS EPITHELIAL CELL UR AU 32 /HPF (0-6); WBC, URINE AUTO 8 /HPF (0-3)
== END ==
LOC: M LAB REF 17:43
PROVIDERS: ATTEND Physician Assistant
DX: R30.0 Dysuria (principal)

== ENCOUNTER → 2018-10-29 | Outpatient (CLI) | payer OTHER ==
--- NOTE | 2018-10-29 15:07 | REP ---
RENAL AND BLADDER ULTRASOUND: Real-time sonographic evaluation of kidneys performed. Both kidneys are normal in size and echotexture, right kidney measuring 10.4 x 5.2 x 5.0 cm and left kidney 12.2 x 6.2 x 6.0 cm. There is no hydronephrosis bilaterally. There is a probable 8 mm stone in the mid left renal collecting system. No other gross renal abnormality is seen, study limited due to patient body habitus. Urinary bladder is mildly distended with no definite intraluminal calculus. There are bilateral ureteral jets in the urinary bladder with Doppler color evaluation. IMPRESSION: No hydronephrosis bilaterally. Probable 8 mm stone in the mid left renal collecting system. Electronically Signed by Jonathan Pacheco MD 10/30/2018 10:19 A
== END ==
LOC: M RAD 13:51
PROVIDERS: ATTEND Physician Assistant
DX: R30.0 Dysuria (principal); M54.5 Low back pain

== ENCOUNTER 2018-11-02 05:53 | Emergency (ER) | payer OTHER ==
[~2018-11-02] VITALS: Ht 162.6 cm; Wt 109.1 kg
[~2018-11-02 05:53] MED LIST changes: -ACET30TAB PO; -DULO1CAP3; -KETO10TAB PO; -NITR100C2; -PENI500T; -TAMS1CAP17; -TERB250T12
[2018-11-02] MEDS ORDERED: ONDANSETRON 4MG/2ML VIAL (J2405) IV ONE (06:30)
[2018-11-02] MEDS ORDERED: NS 1,000 ML IV ONE (06:30)
[2018-11-02] MEDS ORDERED: KETOROLAC 30 MG/ML VIAL (J1885) IV ONE (06:30)
[2018-11-02 06:54] LABS: BASO % 0.4 % (0.0-1.0); EOS # 0.1 10^3/uL (0.0-0.50); EOS % 1.4 % (0.0-3.0); HEMATOCRIT 35.3 % (36.0-47.0); HEMOGLOBIN 10.7 g/dl (12.0-15.5); LYMPH # 0.9 10^3/uL (1.5-4.5); LYMPH % 9.8 % (24.0-44.0); MEAN CORPUSCULAR HEMOGLOBIN 21.6 pg (27.0-33.0); MEAN CORPUSCULAR HGB CONC 30.3 g/dl (32.0-36.5); MEAN CORPUSCULAR VOLUME 71.2 fl (80.0-96.0); MONO # 0.6 10^3/uL (0.0-0.8); MONO % 6.3 % (0.0-5.0); NEUTROPHILS # 7.8 10^3/uL (1.8-7.7); NEUTROPHILS % 81.8 % (36.0-66.0); PLATELET COUNT, AUTOMATED 340 10^3/uL (150-450); RED BLOOD COUNT 4.96 10^6/uL (4.00-5.40); WHITE BLOOD COUNT 9.5 10^3/uL (4.0-10.0)
[2018-11-02 07:14] LABS: BLOOD UREA NITROGEN 12 MG/DL (7-18); CALCIUM LEVEL 8.2 MG/DL (8.5-10.1); CARBON DIOXIDE LEVEL 25 MEQ/L (21-32); CHLORIDE LEVEL 107 MEQ/L (98-107); CREATININE FOR GFR 0.72 MG/DL (0.55-1.30); GLOMERULAR FILTRATION RATE > 60.0 (>58); GLUCOSE, FASTING 108 MG/DL (70-100); POTASSIUM SERUM 3.5 MEQ/L (3.5-5.1); SODIUM LEVEL 140 MEQ/L (136-145)
--- NOTE | 2018-11-02 08:07 | REPVR ---
EXAM: CT Abdomen and Pelvis Without Contrast EXAM DATE/TIME: 11/02/2018 6:29 AM CLINICAL HISTORY: 38 years old, female; Pain; Abdominal pain; Localized; Left; Additional info: Left flank pain, renal colic TECHNIQUE: Axial computed tomography images of the abdomen and pelvis without contrast. All CT scans at this facility use at least one of these dose optimization techniques: automated exposure control; mA and/or kV adjustment per patient size (includes targeted exams where dose is matched to clinical indication); or iterative reconstruction. Coronal and sagittal reformatted images were created and reviewed. COMPARISON: CT ABD PELVIS W/O CONTRAST 06/02/2017 8:43 PM FINDINGS: Lower thorax: No acute findings. ABDOMEN: Liver: Ill-defined low-attenuation area in the posterolateral and caudal right hepatic lobe abutting the capsular surface measuring 3.2 x 0 x 2.8 cm which is nonspecific but similar to the prior study. Gallbladder and bile ducts: Normal. No calcified stones. No ductal dilation. Pancreas: Normal. No ductal dilation. Spleen: The spleen measures 10.2 cm. Adrenals: Normal. No mass. Kidneys and ureters: There is a right renal cyst measuring 2.2 cm. Minimal nonobstructive left renal calculus. Stomach and bowel: Status post gastric sleeve. There is a gastrojejunostomy. Small bowel anastomosis in the left pelvis. Appendix: A normal appendix is seen. PELVIS: Bladder: Unremarkable as visualized. Reproductive: Status post hysterectomy. The ovaries appear normal and symmetric. ABDOMEN and PELVIS: Intraperitoneal space: Normal. No free air. No significant fluid collection. Bones/joints: Bilateral spondylolysis of L5 with grade one anterior listhesis. Soft tissues: Unremarkable. Vasculature: Normal. No abdominal aortic aneurysm. Lymph nodes: Normal. No enlarged lymph nodes. IMPRESSION: 1. Resolution of left UVJ calculus and left obstructive uropathy since 06/02/2017. 2. Punctate nonobstructing left renal calculus. No ureteral calculi are evident and there is no evidence of obstructive uropathy. 3. Ill-defined low-attenuation area in the posterolateral right hepatic lobe which is nonspecific but is unchanged on the prior study. 4. Bilateral spondylolysis of L5 with anterior listhesis. 5. Status post gastric sleeve with probable gastrojejunostomy and prior hysterectomy Electronically signed by: Mauricio Godfrey On 11/02/2018 08:07:08 AM
[2018-11-02 09:18] VITALS: BP 138/76
[2018-11-02] MEDS ORDERED: NITR100C2 (17:01)
[2018-11-02] MEDS ORDERED: PENI500T (17:01)
[2018-11-02] MEDS ORDERED: TAMS1CAP17 (17:01)
[2018-11-02] MEDS ORDERED: TERB250T12 (17:01)
[2018-11-02] MEDS ORDERED: DULO1CAP3 (17:01)
[2018-11-02] MEDS ORDERED: KETO10TAB PO ×2 (19:59→20:42)
[2018-11-02] MEDS ORDERED: ACET30TAB PO ×2 (19:59→20:42)
== END 2018-11-02 09:36 | disposition home or self-care (01) ==
LOC: M ED 05:53
DX: N39.0 Urinary tract infection, site not specified (principal); B96.20 Unspecified Escherichia coli [E. coli] as the cause of diseases classified elsewhere; N20.0 Calculus of kidney; M43.06 Spondylolysis, lumbar region; Z98.84 Bariatric surgery status; Z88.1 Allergy status to other antibiotic agents; Z88.8 Allergy status to other drugs, medicaments and biological substances; Z98.890 Other specified postprocedural states; Z87.442 Personal history of urinary calculi; Z87.440 Personal history of urinary (tract) infections
CPT/HCPCS: 74176; 80048; 81001; 85025; 87086; 96374; 96375; 99284; J1885; J2405

== ENCOUNTER 2018-11-02 16:54 | Emergency (ER) | payer OTHER ==
[~2018-11-02] VITALS: Ht 162.6 cm; Wt 100.0 kg
[2018-11-02] MEDS ORDERED: TERB250T12 (17:01)
[2018-11-02] MEDS ORDERED: PENI500T (17:01)
[2018-11-02] MEDS ORDERED: NITR100C2 (17:01)
[2018-11-02] MEDS ORDERED: DULO1CAP3 (17:01)
[2018-11-02] MEDS ORDERED: TAMS1CAP17 (17:01)
[2018-11-02] MEDS ORDERED: METOCLOPRAMIDE INJ 10MG/2ML VIAL (J2765) IV ONE (18:00)
[2018-11-02] MEDS ORDERED: KETOROLAC 30 MG/ML VIAL (J1885) IV ONE (18:00)
[2018-11-02 18:56] LABS: APPEARANCE, URINE HAZY (CLEAR); BACTERIA, URINE AUTO 1+ (NEGATIVE); BILIRUBIN, URINE AUTO NEGATIVE (NEGATIVE); BLOOD, URINE BLOOD 1+ (NEGATIVE); COLOR, URINE YELLOW (YELLOW); GLUCOSE, URINE (UA) AUTO NEGATIVE (NEGATIVE); KETONE, URINE AUTO NEGATIVE (NEGATIVE); LEUKOCYTE ESTERASE, URINE AUTO 2+ (NEGATIVE); NITRITE, URINE AUTO NEGATIVE (NEGATIVE); PROTEIN, URINE AUTO NEGATIVE (NEGATIVE); RBC, URINE AUTO 2 /HPF (0-3); SPECIFIC GRAVITY URINE AUTO 1.002 (1.002-1.035); SQUAMOUS EPITHELIAL CELL UR AU 5 /HPF (0-6); UROBILINOGEN, URINE AUTO 0.2 mg/dL (0.0-2.0); WBC, URINE AUTO 8 /HPF (0-3)
[2018-11-02 19:27] LABS: BASO % 0.3 % (0.0-1.0); EOS # 0.1 10^3/uL (0.0-0.50); EOS % 0.9 % (0.0-3.0); HEMOGLOBIN 10.8 g/dl (12.0-15.5); LYMPH # 0.6 10^3/uL (1.5-4.5); LYMPH % 5.2 % (24.0-44.0); MEAN CORPUSCULAR HEMOGLOBIN 21.6 pg (27.0-33.0); MEAN CORPUSCULAR VOLUME 71.9 fl (80.0-96.0); MONO # 0.6 10^3/uL (0.0-0.8); MONO % 5.5 % (0.0-5.0); NEUTROPHILS # 9.5 10^3/uL (1.8-7.7); NEUTROPHILS % 87.7 % (36.0-66.0); PLATELET COUNT, AUTOMATED 328 10^3/uL (150-450); RED BLOOD COUNT 5.01 10^6/uL (4.00-5.40); WHITE BLOOD COUNT 10.8 10^3/uL (4.0-10.0)
--- NOTE | 2018-11-02 19:44 | REPVR ---
EXAM: US Pelvis Complete, Transabdominal EXAM DATE/TIME: 11/02/2018 6:48 PM CLINICAL HISTORY: 38 years old, female; Pain; Vaginal pain; Prior surgery; Surgery date: 6+ months; Surgery type: Hysterectomy partial 11 years ago; Additional info: Left flank pain, HX of pcos TECHNIQUE: Real-time transabdominal pelvic ultrasound with image documentation. Complete exam. COMPARISON: CT ABD PELVIS W/O CONTRAST 11/02/2018 6:32 AM FINDINGS: Uterus/cervix: Status post hysterectomy. Right adnexa: Right ovary measures 3 x 2 x 2.6 cm. Left adnexa: Left ovary measures 4.1 x 2.4 x 3.2 centimeters Echo filled cyst in the left ovary measures 2.8 x 1.2 x 1.9 cm. finding likely represents a hemorrhagic cyst. Possibility of endometrioma is not excluded. Echogenic focus in the left ovary measures 1 x 0.6 x 0.5 cm. Finding may represent a small dermoid. Bladder: Normal. IMPRESSION: Echo filled cyst in the left ovary measures2.8 x 1.2 x 1.9 cm. finding likely represents a hemorrhagic cyst. Possibility of endometrioma is not excluded. Possible small dermoid left ovary. Electronically signed by: Dakota Harding On 11/02/2018 19:44:14 PM
[2018-11-02 19:47] LABS: BLOOD UREA NITROGEN 12 MG/DL (7-18); C REACTIVE PROTEIN QUANTITATIV 4.41 MG/DL (0.00-0.30); CALCIUM LEVEL 7.8 MG/DL (8.5-10.1); CARBON DIOXIDE LEVEL 24 MEQ/L (21-32); CHLORIDE LEVEL 107 MEQ/L (98-107); CREATININE FOR GFR 1.04 MG/DL (0.55-1.30); GLOMERULAR FILTRATION RATE > 60.0 (>58); GLUCOSE, FASTING 110 MG/DL (70-100); POTASSIUM SERUM 3.4 MEQ/L (3.5-5.1); SODIUM LEVEL 139 MEQ/L (136-145)
--- NOTE | 2018-11-02 19:49 | REPVR ---
EXAM: US Retroperitoneal Limited, Kidneys EXAM DATE/TIME: 11/02/2018 6:48 PM CLINICAL HISTORY: 38 years old, female; Pain; Abdominal pain; Flank; Left lower quadrant (llq); Additional info: Left flank pain, seen in ed today for same, neg CT TECHNIQUE: Real-time ultrasound of the retroperitoneum with image documentation. Examination was focused on the kidneys. COMPARISON: RENAL US 10/29/2018 2:13 PM FINDINGS: Right kidney: Right kidney measures 12 x 6.4 x 5.8 cm. lower pole renal cyst measures 2.4 x 2.6 x 2.2 cm. Left kidney: Left kidney measures 13.6 x 6.4 x 6.5 cm. Echogenic calculus measures 1.6 x 0.7 x 1.1 cm. Bladder: Bilateral ureteral jet is demonstrated. IMPRESSION: Right renal cyst. Nonobstructive calculus left kidney. Otherwise unremarkable. Electronically signed by: Dakota Harding On 11/02/2018 19:49:21 PM
[2018-11-02] MEDS ORDERED: ACET30TAB PO ×2 (19:59→20:42)
[2018-11-02] MEDS ORDERED: KETO10TAB PO ×2 (19:59→20:42)
[2018-11-02 20:08] VITALS: BP 138/77
--- NOTE | 2018-11-02 20:45 | ED PDOC ---
Post-Departure Follow-Up AT 2034, RECEIVED CALL FROM [facility] IN [place] STATING PT WAS THERE AND EXPECTING PRE SCRIPTIONS FROM TODAY'S VISIT. PRESCRIPTIONS WERE SENT TO [facility] PER DISCHARGE PAPERS. PEMA LAURA CALLED [facility] TO REQUEST A CANCELLATION ON THESE PRESCRIPTIONS AND THE PRESCRIPTIONS WERE ELECTRONICALLY SENT TO [facility] IN [employer] AT THIS TIME. RILEY ARENAS PA-C Nov 02, 2018 20:44
== END 2018-11-02 20:10 | disposition home or self-care (01) ==
LOC: M ED 16:54
DX: N39.0 Urinary tract infection, site not specified (principal); N20.0 Calculus of kidney; N28.1 Cyst of kidney, acquired; R10.9 Unspecified abdominal pain; N83.202 Unspecified ovarian cyst, left side; E66.9 Obesity, unspecified; F41.9 Anxiety disorder, unspecified; Z87.442 Personal history of urinary calculi; Z87.440 Personal history of urinary (tract) infections; G93.2 Benign intracranial hypertension; Z98.84 Bariatric surgery status; Z79.899 Other long term (current) drug therapy; Z88.1 Allergy status to other antibiotic agents; Z88.8 Allergy status to other drugs, medicaments and biological substances
CPT/HCPCS: 76775; 76830; 76856; 80048; 81001; 85025; 86140; 93976; 96374; 96375; 99284; J1885; J2765

== ENCOUNTER → 2018-12-24 | Outpatient (REF) | payer OTHER ==
[~2018-12-24] MED LIST changes: +ACET-716 PO; +DULO1CAP3; +KETO10TAB PO; +NITR100C2; +PENI500T; +TAMS1CAP17; +TERB250T12; +VITA500T17 PO; -VITA500T53 PO
== END ==
LOC: M SFHCLERA 12:34
PROVIDERS: ATTEND Physician Assistant
DX: J02.9 Acute pharyngitis, unspecified (principal)

== ENCOUNTER → 2019-01-25 | Outpatient (REF) | payer OTHER ==
[2019-01-25 14:21] LABS: PERCENT SATURATION 5.9 % (13.2-45.0)
[2019-01-30 10:42] LABS: VITAMIN A, RETINOL LEVEL 25.7 ug/dL (20.1-62.0); VITAMIN B1 LEVEL WHOLE BLOOD 105.6 nmol/L (66.5-200.0)
== END ==
LOC: M LAB REF 12:12 → EEVIPCON 12:12
PROVIDERS: ATTEND Nurse Practitioner Adult Health
DX: Z98.84 Bariatric surgery status (principal)

== ENCOUNTER 2019-04-10 18:14 | Emergency (ER) | payer OTHER ==
[~2019-04-10] VITALS: Ht 162.6 cm; Wt 104.3 kg
[~2019-04-10 18:14] MED LIST changes: -DULO1CAP3; +DULO1CAP6
[2019-04-10 18:15] VITALS: BP 167/86
[2019-04-10] MEDS ORDERED: AMLO5TAB6 (18:22)
[2019-04-10] MEDS ORDERED: KETOROLAC 30 MG/ML VIAL (J1885) IV ONE (21:15)
[2019-04-10] MEDS ORDERED: PROCHLORPERAZINE 10 MG/2 ML VIAL (J0780) IV ONE (21:15)
[2019-04-10] MEDS ORDERED: NS 1,000 ML IV ONE (21:15)
[2019-04-10 21:41] LABS: BASO % 0.4 % (0.0-1.0); EOS % 0.3 % (0.0-3.0); HEMOGLOBIN 10.8 g/dl (12.0-15.5); LYMPH # 1.3 10^3/uL (1.5-4.5); LYMPH % 16.5 % (24.0-44.0); MEAN CORPUSCULAR HEMOGLOBIN 21.5 pg (27.0-33.0); MEAN CORPUSCULAR VOLUME 71.7 fl (80.0-96.0); MONO # 0.3 10^3/uL (0.0-0.8); MONO % 4.4 % (0.0-5.0); NEUTROPHILS % 78.1 % (36.0-66.0); PLATELET COUNT, AUTOMATED 307 10^3/uL (150-450); RED BLOOD COUNT 5.02 10^6/uL (4.00-5.40); WHITE BLOOD COUNT 7.7 10^3/uL (4.0-10.0)
[2019-04-10 21:58] LABS: BLOOD UREA NITROGEN 10 MG/DL (7-18); CALCIUM LEVEL 8.6 MG/DL (8.5-10.1); CARBON DIOXIDE LEVEL 26 MEQ/L (21-32); CHLORIDE LEVEL 107 MEQ/L (98-107); CREATININE FOR GFR 0.68 MG/DL (0.55-1.30); GLOMERULAR FILTRATION RATE > 60.0 (>58); GLUCOSE, FASTING 122 MG/DL (70-100); POTASSIUM SERUM 3.5 MEQ/L (3.5-5.1); SODIUM LEVEL 142 MEQ/L (136-145)
[2019-04-10] MEDS ORDERED: ACETAMINOPHEN 500 MG TAB PO ONE (22:45)
[2019-04-10 22:46] LABS: ERYTHROCYTE SEDIMENTATION RATE 8 mm/hr (0-20)
[2019-04-10] MEDS ORDERED: ACETAMINOPHEN 325 MG TAB As Ordered ONE (22:46)
== END 2019-04-10 22:53 | disposition home or self-care (01) ==
LOC: M ED 18:14
DX: G43.909 Migraine, unspecified, not intractable, without status migrainosus (principal); F17.200 Nicotine dependence, unspecified, uncomplicated; Z88.1 Allergy status to other antibiotic agents; Z88.8 Allergy status to other drugs, medicaments and biological substances; Z79.899 Other long term (current) drug therapy
CPT/HCPCS: 80048; 85025; 85652; 96374; 96375; 99284; J0780; J1885

== ENCOUNTER → 2019-05-09 | Outpatient (REF) | payer OTHER ==
[~2019-05-09] MED LIST changes: +AMLO5TAB6
[2019-05-09 12:59] LABS: FOLLICLE STIMULATING HORMONE 7.1 mIU/mL; LUTEINIZING HORMONE 7.9 mIU/mL; PROLACTIN 5.5 NG/ML
== END ==
LOC: M LAB REF 12:13
PROVIDERS: ATTEND Nurse Practitioner Adult Health
DX: N64.52 Nipple discharge (principal)

== ENCOUNTER → 2019-07-15 | Outpatient (REF) | payer OTHER ==
[2019-07-17 14:07] LABS: HPV HYBRID CAPTURE II Negative (Negative)
== END ==
LOC: M LAB REF 17:16
PROVIDERS: ATTEND Advanced Practice Midwife
DX: Z12.72 Encounter for screening for malignant neoplasm of vagina (principal)
CPT/HCPCS: 87624; G0123

== ENCOUNTER → 2019-10-01 | Outpatient (REF) | payer OTHER ==
[2019-10-01 13:15] LABS: PERCENT SATURATION 6.2 % (13.2-45.0)
== END ==
LOC: M LAB REF 12:03
PROVIDERS: ATTEND Nurse Practitioner Adult Health
DX: I10 Essential (primary) hypertension (principal)

== ENCOUNTER → 2019-10-08 | Outpatient (REF) | payer OTHER | LOC: M SFHCLERA 20:17 | PROVIDERS: ATTEND Physician Assistant | DX: J02.9 Acute pharyngitis, unspecified (principal) ==

== ENCOUNTER → 2019-10-16 | Outpatient (REF) | payer OTHER | LOC: M SFHCLERA 15:59 | PROVIDERS: ATTEND Nurse Practitioner Family | DX: R50.9 Fever, unspecified (principal) ==

== ENCOUNTER → 2020-04-03 | Outpatient (REF) | payer OTHER ==
[~2020-04-03] MED LIST changes: +AMLO1TAB24; -AMLO5TAB6; +OXYC-1 PO; -OXYC15TA76 PO
== END ==
LOC: M LAB REF 16:57
PROVIDERS: ATTEND Nurse Practitioner Adult Health
DX: J02.9 Acute pharyngitis, unspecified (principal); I10 Essential (primary) hypertension; R73.09 Other abnormal glucose

== ENCOUNTER 2020-08-10 09:03 | Emergency (ER) | payer OTHER ==
[~2020-08-10] VITALS: Ht 162.6 cm; Wt 111.1 kg
[2020-08-10] MEDS ORDERED: IBUP-354 PO (09:14)
[2020-08-10] MEDS ORDERED: ACET-897 PO (09:14)
[2020-08-10] MEDS ORDERED: NS 1,000 ML IV ONE (10:45)
[2020-08-10] MEDS ORDERED: diphenhydrAMINE 50MG/ML VIAL (J1200) IV ONE (10:45)
[2020-08-10] MEDS ORDERED: KETOROLAC 30 MG/ML 1ML VIAL IV ONE (11:00)
[2020-08-10 11:06] LABS: BASO # 0.1 10^3/uL (0.0-0.2); EOS # 0.1 10^3/uL (0.0-0.5); EOS % 2.3 % (0.0-3.0); HEMATOCRIT 44.9 % (36.0-47.0); HEMOGLOBIN 14.5 g/dl (12.0-15.5); LYMPH # 2.1 10^3/uL (1.5-5.0); LYMPH % 40.5 % (24.0-44.0); MEAN CORPUSCULAR HEMOGLOBIN 26.8 pg (27.0-33.0); MEAN CORPUSCULAR HGB CONC 32.3 g/dl (32.0-36.5); MONO # 0.4 10^3/uL (0.0-0.8); MONO % 7.1 % (0.0-5.0); NEUTROPHILS # 2.5 10^3/uL (1.5-8.5); NEUTROPHILS % 48.9 % (36.0-66.0); PLATELET COUNT, AUTOMATED 281 10^3/uL (150-450); RED BLOOD COUNT 5.41 10^6/uL (4.00-5.40); WHITE BLOOD COUNT 5.2 10^3/uL (4.0-10.0)
[2020-08-10 11:30] LABS: ERYTHROCYTE SEDIMENTATION RATE 2 mm/hr (0-20)
[2020-08-10 11:31] LABS: ALBUMIN 3.7 GM/DL (3.2-5.2); ALT/SGPT 21 U/L (12-78); BILIRUBIN,DIRECT 0.1 MG/DL (0.0-0.2); BILIRUBIN,TOTAL 0.3 MG/DL (0.2-1.0); BLOOD UREA NITROGEN 5 MG/DL (7-18); CALCIUM LEVEL 8.8 MG/DL (8.5-10.1); CARBON DIOXIDE LEVEL 29 MEQ/L (21-32); CHLORIDE LEVEL 110 MEQ/L (98-107); CREATININE FOR GFR 0.63 MG/DL (0.55-1.30); GLOMERULAR FILTRATION RATE > 60.0 (>58); GLUCOSE, FASTING 68 MG/DL (70-100); LIPASE 99 U/L (73-393); POTASSIUM SERUM 3.8 MEQ/L (3.5-5.1); SODIUM LEVEL 141 MEQ/L (136-145); TOTAL PROTEIN 6.4 GM/DL (6.4-8.2)
[2020-08-10] MEDS ORDERED: ISOVUE-370 76% 100ML VIAL As Ordered ONE (11:34)
--- NOTE | 2020-08-10 12:21 | REP ---
INDICATION: severe post eye pain on left, headache. COMPARISON: Comparison head CT studies are reviewed from January 02, 2017 and November 12, 2014.. TECHNIQUE: Helical scanning is acquired. 5 mm axial images were reformatted. Coronal MPR images were generated. FINDINGS: Bone window settings demonstrate an intact bony calvarium. There is no evidence of skull fracture or incidental bony calvarial lesion. The visualized paranasal sinuses appear clear. No intraorbital abnormality is seen. On soft tissue window setting images; the lateral, third, and fourth ventricles are normal in size and position. Pacheco-white differentiation pattern is normal above and below the tentorium. There are is no evidence of intracranial hemorrhage. No mass, edema, infarction, or midline shift is seen. No extra-axial fluid collection is appreciated. There is a low-density area in the inferior basal ganglia on the left again noted unchanged from multiple prior studies consistent with a small cyst or an area of dilated perivascular space. This is unchanged from multiple prior studies. Exam is otherwise unremarkable. IMPRESSION: Negative noncontrast head CT. <Electronically signed by Jamir Carter > 08/10/20 [id number]
--- NOTE | 2020-08-10 12:27 | REP ---
INDICATION: concern for inflamm around optic nerve. Severe posterior orbital pain on the left. COMPARISON: Comparison is made with prior brain CTs.. TECHNIQUE: Helical scanning is acquired and 3 mm axial images are generated. Coronal and sagittal MPR images are generated. The contrast enhancement dose is 75 mL of Isovue 370. FINDINGS: There is no evidence of intraconal or extra conal orbital mass on either side. The optic nerves are normal and symmetric. The ocular globes are unremarkable. Extraocular muscles appear symmetric. Bony orbital margins are intact. The paranasal sinuses are clear. There are aerated sujata bullosa bilaterally in the middle turbinates. Ostiomeatal complexes appear intact. Nasal ethmoid recesses are unremarkable. Visualized intracranial structures are unremarkable. No abnormal contrast enhancement is seen. IMPRESSION: Negative orbital CT study with IV contrast. No intraorbital mass lesion. Symmetric size and shape to the optic nerves. <Electronically signed by Jamir Carter > 08/10/20 [id number]
[2020-08-10 12:35] VITALS: BP 158/92
== END 2020-08-10 13:17 | disposition home or self-care (01) ==
LOC: M ED 09:03
DX: G43.909 Migraine, unspecified, not intractable, without status migrainosus (principal); G93.2 Benign intracranial hypertension; G93.0 Cerebral cysts; I10 Essential (primary) hypertension; E28.2 Polycystic ovarian syndrome; Z98.84 Bariatric surgery status; Z79.899 Other long term (current) drug therapy; Z88.8 Allergy status to other drugs, medicaments and biological substances
CPT/HCPCS: 70450; 70481; 80048; 80076; 83690; 85025; 85652; 86140; 96361; 96374; 96375; 99284; J1200; J1885; Q9967

== ENCOUNTER → 2020-09-24 | Outpatient (REF) | payer OTHER ==
[~2020-09-24] MED LIST changes: +ACET-897 PO; +IBUP-354 PO
== END ==
LOC: M LAB REF 12:04
PROVIDERS: ATTEND Nurse Practitioner Adult Health
DX: R61 Generalized hyperhidrosis (principal); Z20.1 Contact with and (suspected) exposure to tuberculosis

== ENCOUNTER → 2020-11-24 | Outpatient (REF) | payer OTHER ==
[~2020-11-24] MED LIST changes: +AMLO1TAB25; +SPIR-10
== END ==
LOC: M LAB REF 12:34
PROVIDERS: ATTEND Physician Assistant
DX: R30.0 Dysuria (principal)

== ENCOUNTER 2020-11-26 16:47 | Emergency (ER) | payer OTHER ==
[~2020-11-26] VITALS: Ht 162.6 cm; Wt 110.9 kg
[~2020-11-26 16:47] MED LIST changes: -AMLO1TAB25; -SPIR-10
[2020-11-26] MEDS ORDERED: NITR100C2 (17:04)
[2020-11-26] MEDS ORDERED: AMLO1TAB25 (17:04)
[2020-11-26] MEDS ORDERED: SPIR-10 (17:04)
[2020-11-26] MEDS ORDERED: NS 1,000 ML IV ONE (18:25)
[2020-11-26] MEDS ORDERED: KETOROLAC 30 MG/ML 1ML VIAL IV ONE (18:25)
[2020-11-26] MEDS ORDERED: ONDANSETRON 4MG/2ML VIAL IV ONE (18:25)
[2020-11-26 18:31] LABS: BASO % 0.3 % (0.0-1.0); EOS # 0.2 10^3/uL (0.0-0.5); EOS % 1.2 % (0.0-3.0); HEMOGLOBIN 14.5 g/dl (12.0-15.5); LYMPH # 0.8 10^3/uL (1.5-5.0); LYMPH % 6.7 % (24.0-44.0); MEAN CORPUSCULAR HEMOGLOBIN 27.7 pg (27.0-33.0); MEAN CORPUSCULAR VOLUME 84.1 fl (80.0-96.0); MONO # 0.8 10^3/uL (0.0-0.8); MONO % 6.5 % (2.0-8.0); NEUTROPHILS # 10.6 10^3/uL (1.5-8.5); NEUTROPHILS % 84.9 % (36.0-66.0); PLATELET COUNT, AUTOMATED 245 10^3/uL (150-450); RED BLOOD COUNT 5.23 10^6/uL (4.00-5.40); WHITE BLOOD COUNT 12.4 10^3/uL (4.0-10.0)
[2020-11-26 18:51] LABS: APPEARANCE, URINE HAZY (CLEAR); BACTERIA, URINE AUTO NEGATIVE (NEGATIVE); BILIRUBIN, URINE AUTO NEGATIVE (NEGATIVE); BLOOD, URINE BLOOD 2+ (NEGATIVE); COLOR, URINE AMBER (YELLOW); GLUCOSE, URINE (UA) AUTO NEGATIVE (NEGATIVE); KETONE, URINE AUTO NEGATIVE (NEGATIVE); LEUKOCYTE ESTERASE, URINE AUTO 2+ (NEGATIVE); MUCUS, URINE SMALL (NEGATIVE); NITRITE, URINE AUTO POSITIVE (NEGATIVE); PROTEIN, URINE AUTO 2+ mg/dL (NEGATIVE); RBC, URINE AUTO 15 /HPF (0-3); SPECIFIC GRAVITY URINE AUTO 1.005 (1.002-1.035); SQUAMOUS EPITHELIAL CELL UR AU 1 /HPF (0-6); WBC, URINE AUTO 154 /HPF (0-3)
[2020-11-26 18:54] LABS: ALBUMIN 3.9 GM/DL (3.2-5.2); BILIRUBIN,DIRECT 0.3 MG/DL (0.0-0.2); BILIRUBIN,TOTAL 0.9 MG/DL (0.2-1.0); TOTAL PROTEIN 6.7 GM/DL (6.4-8.2)
[2020-11-26] MEDS ORDERED: ISOVUE-370 76% 100ML VIAL As Ordered ONE (19:02)
--- NOTE | 2020-11-26 20:08 | REPVR ---
PROCEDURE INFORMATION: Exam: CT Abdomen And Pelvis With Contrast Exam date and time: 11/26/2020 7:37 PM Age: 40 years old Clinical indication: Abdominal pain; Additional info: Recent UTI, flank pain, chills, no improvement with abx TECHNIQUE: Imaging protocol: Computed tomography of the abdomen and pelvis with contrast. Radiation optimization: All CT scans at this facility use at least one of these dose optimization techniques: automated exposure control; mA and/or kV adjustment per patient size (includes targeted exams where dose is matched to clinical indication); or iterative reconstruction. Contrast material: ISOVUE 370; Contrast volume: 100 ml; Contrast route: INTRAVENOUS (IV); COMPARISON: CT ABD PELVIS W/O CONTRAST 11/02/2018 6:32 AM FINDINGS: Liver: Hypoattenuating focus in the subcapsular aspect of the right lobe of the liver measures 3.2 x 2.3 x 2.8 cm demonstrates vague peripheral enhancement although not fully characterized on this single phase study. Finding likely represents benign focus such as a hemangioma. Further evaluation with ultrasound or dynamic hepatic MRI could be obtained if clinically desired. There is a diffuse decrease in hepatic parenchymal density, consistent with steatosis. Gallbladder and bile ducts: Normal. No calcified stones. No ductal dilation. Pancreas: Normal. No ductal dilation. Spleen: There is moderate splenomegaly with a maximum span of 15 centimeters. No focal abnormalities demonstrated. Adrenal glands: Normal. No mass. Kidneys and ureters: Bilateral simple renal cysts measure up to 2.9 cm in the right kidney. No follow-up suggested. Slight dilatation of the proximal pelvocaliceal systems with a suggestion of peripelvic and periureteral inflammatory changes, left greater than right. Findings may indicate infection and should be correlated clinically. Stomach and bowel: This patient is status post gastric bypass surgery. Appendix: No evidence of appendicitis. Intraperitoneal space: Unremarkable. No free air. No significant fluid collection. Vasculature: Unremarkable. No abdominal aortic aneurysm. Lymph nodes: Unremarkable. No enlarged lymph nodes. Urinary bladder: Unremarkable as visualized. Reproductive: There has been a hysterectomy. Bones/joints: There is a grade 1 anterior spondylolisthesis of L5 on S1 secondary to bilateral L5 spondylolysis. Soft tissues: Unremarkable. IMPRESSION: 1. Findings compatible with a probable hemangioma in the posterior subcapital aspect of the right lobe of the liver as described above. 2. There is a diffuse decrease in hepatic parenchymal density, consistent with steatosis. 3. There is moderate splenomegaly with a maximum span of 15 centimeters. No focal abnormalities demonstrated. 4. This patient is status post gastric bypass surgery. 5. Bilateral simple renal cysts measure up to 2.9 cm in the right kidney. No follow-up suggested. 6. There has been a hysterectomy. 7. There is a grade 1 anterior spondylolisthesis of L5 on S1 secondary to bilateral L5 spondylolysis. 8. Slight dilatation of the proximal pelvocaliceal systems with a suggestion of peripelvic and periureteral inflammatory changes, left greater than right. Findings may indicate infection and should be correlated clinically. COMMENTS: Consistent with the [employer] [place] [employer]'s Incidental Findings Committee white paper (J Am Pilar Radiol 2018): Any incidental renal lesion less than 1 cm or classified as too small to characterize, or any incidental cystic renal lesion characterized as simple-appearing, is likely benign. No follow-up imaging is recommended for these lesions per consensus recommendations based on imaging criteria. Electronically signed by: Dakota Harding On 11/26/2020 20:08:50 PM
[2020-11-26] MEDS ORDERED: CIPROFLOXACIN 200 MG in IV 1 EA IV ONE (20:25)
[2020-11-26] MEDS ORDERED: NORCO 5/325MG TABLET (BULK FOR ED) PO ONE (20:25)
[2020-11-26] MEDS ORDERED: POTASSIUM CHLORIDE 10 MEQ SR TABLET PO ONE (20:45)
[2020-11-26 21:11] VITALS: BP 128/79
[2020-11-26] MEDS ORDERED: CIPR-249 PO (21:45)
--- NOTE | 2020-11-27 09:10 | ED PDOC ---
Post-Departure Follow-Up certified letter sent to pt re formal read of ct abd/p - needs fu. please obtain pcp name and fax. if no pcp then refer to [facility] and fax for fu Jessica Sloan MD Nov 27, 2020 09:10
== END 2020-11-26 21:58 | disposition home or self-care (01) ==
LOC: M ED 16:47
DX: N39.0 Urinary tract infection, site not specified (principal); R93.2 Abnormal findings on diagnostic imaging of liver and biliary tract; R16.1 Splenomegaly, not elsewhere classified; N28.1 Cyst of kidney, acquired; M43.17 Spondylolisthesis, lumbosacral region; M54.9 Dorsalgia, unspecified; I10 Essential (primary) hypertension; Z87.448 Personal history of other diseases of urinary system; Z87.442 Personal history of urinary calculi; E28.2 Polycystic ovarian syndrome; Z86.011 Personal history of benign neoplasm of the brain; Z98.84 Bariatric surgery status; Z79.899 Other long term (current) drug therapy; Z88.8 Allergy status to other drugs, medicaments and biological substances; Z88.1 Allergy status to other antibiotic agents
CPT/HCPCS: 74177; 80047; 80076; 81001; 83690; 84702; 85025; 96365; 96375; 99283; J0744; J1885; J2405; Q9967